=== PATIENT | female | born 1970 | race Caucasian/White ===

== ENCOUNTER 2017-09-02 06:25 | Day surgery (SDC) | payer OTHER ==
[2017-09-01 11:03] VITALS: BMI 24.3
[2017-09-02 07:13] VITALS: TEMP 97.9
[2017-09-02 07:34] LABS: BASO % 0.2 % (0-2.0); EOS % 1.4 % (0-4.5); HEMATOCRIT 41.3 % (32.4-45.2); HEMOGLOBIN 13.3 GM/dl (10.7-15.3); LYMPH % 31.4 % (8-40); MCH 29.5 pg (25.7-33.7); MCHC 32.1 g/dl (32.0-36.0); MEAN CELL VOLUME 91.9 fl (80-96); MEAN PLT VOLUME 8.5 fl (7.5-11.1); MONO % 4.8 % (3.8-10.2); NEUT % 62.2 % (42.8-82.8); PLATELET COUNT 384 K/MM3 (134-434); RDW 12.8 % (11.6-15.6); WHITE BLOOD COUNT 10.6 K/mm3 (4.0-10.8)
[2017-09-02 07:54] LABS: ALBUMIN 3.6 g/dl (3.5-5.0); ALK PHOS 39 U/L (32-92); ANION GAP 4 (8-16); BILIRUBIN,TOTAL 0.4 mg/dl (0.2-1.0); BLOOD UREA NITROGEN 13 mg/dl (7-18); CHLORIDE 107 mmol/L (98-107); CO2 26 mmol/L (22-28); CREATININE 0.9 mg/dl (0.6-1.3); GLUCOSE,RANDOM 94 mg/dl (74-106); POTASSIUM 3.9 mmol/L (3.5-5.1); SGOT/AST 11 U/L (10-42); SGPT/ALT 9 U/L (10-40); SODIUM 137 mmol/L (136-145); TOT PROT 5.7 g/dl (6.4-8.3)
[2017-09-02] MEDS ORDERED: KETAMINE HCL 500 MG/10 ML VIAL ONE (08:27)
[2017-09-02] MEDS ORDERED: PROMETHAZINE HCL 25 MG/1 ML VIAL IVPUSH PRN (08:39)
[2017-09-02] MEDS ORDERED: ONDANSETRON 4 MG/2 ML VIAL IVPUSH PRN (08:39)
[2017-09-02] MEDS ORDERED: ACETAMINOPHEN 325 MG TABLET (FP) PO PRN (08:39)
[2017-09-02] MEDS ORDERED: LACTATED RINGERS SOLUTION 1,000 ML IV SCH (08:45)
[2017-09-02 10:17] VITALS: BP 110/71; PULSE 69
--- NOTE | 2017-09-02 18:57 | EKG ---
Test Reason : Blood Pressure : / mmHG Vent. Rate : 059 BPM Atrial Rate : 059 BPM P-R Int : 160 ms QRS Dur : 080 ms QT Int : 438 ms P-R-T Axes : 047 006 038 degrees QTc Int : 433 ms SINUS BRADYCARDIA OTHERWISE NORMAL ECG NO PREVIOUS ECGS AVAILABLE Confirmed by JASMINE BARNARD MD ([id number]) on 09/02/2017 6:57:35 PM Referred By: Andrew Parikh Confirmed By:JASMINE BARNARD MD
== END 2017-09-02 10:00 | disposition home or self-care (01) ==
LOC: FECT 06:25 → SUATTDRO 06:25 → FECT 10:00
PROVIDERS: ATTEND Nurse Practitioner Family
PROC: GZB4ZZZ Other Electroconvulsive Therapy (ICD-10-PCS; principal; 2017-09-02 08:15)
DX: F33.2 Major depressive disorder, recurrent severe without psychotic features (principal)
CPT/HCPCS: 36415; 80053; 84703; 85025; 90870; 93005; 94760

== ENCOUNTER 2017-09-03 05:46 | Day surgery (SDC) | payer OTHER ==
[2017-09-01 12:52] VITALS: BMI 24.3
--- NOTE | 2017-09-02 07:52 | HP ---
CHIEF COMPLAINT: Major Depression PCP:Dr. Tyrell Boateng HISTORY OF PRESENT ILLNESS: This is a 47 year old female with primary history significant for anxiety and major depression who was admitted to [facility] in Apr 2017 and have received ECT's, now here for scheduled ECT. Pt denies RUBI, dizziness, chest pain, sob, palpitations, abdominal pain, N/V/D, fever, chills or urinary symptoms. ER course was notable for: (1) EKG- SB (2) Lab - reviewed Recent Travel:No PAST MEDICAL HISTORY: Anxiety, major depression PAST SURGICAL HISTORY: 2002 Social History: Smoking:No Alcohol:No Drugs: No Family History: Father - HTN Mother - Leukemia Allergies No Known Drug Allergies Allergy (Verified 09/02/17 06:54) HOME MEDICATIONS: Home Medications Medication Instructions Recorded [place] Carbonate [Eskalith -] 900 mg PO HS 09/02/17 Sertraline HCl [Zoloft -] 25 mg PO HS 09/02/17 Ziprasidone [Geodon] 80 mg PO HS 09/02/17 REVIEW OF SYSTEMS CONSTITUTIONAL: Absent: fever, chills, diaphoresis, generalized weakness, malaise, loss of appetite, weight change HEENT: Absent: rhinorrhea, nasal congestion, throat pain, throat swelling, difficulty swallowing, mouth swelling, ear pain, eye pain, visual changes CARDIOVASCULAR: Absent: chest pain, syncope, palpitations, irregular heart rate, lightheadedness , peripheral edema RESPIRATORY: Absent: cough, shortness of breath, dyspnea with exertion, orthopnea, wheezing, stridor, hemoptysis GASTROINTESTINAL: Absent: abdominal pain, abdominal distension, nausea, vomiting, diarrhea, constipation, melena, hematochezia GENITOURINARY: Absent: dysuria, frequency, urgency, hesitancy, hematuria, flank pain, genital pain MUSCULOSKELETAL: Absent: myalgia, arthralgia, joint swelling, back pain, neck pain SKIN: Absent: rash, itching, pallor HEMATOLOGIC/IMMUNOLOGIC: Absent: easy bleeding, easy bruising, lymphadenopathy, frequent infections ENDOCRINE: Absent: unexplained weight gain, unexplained weight loss, heat intolerance, cold intolerance NEUROLOGIC: Absent: headache, focal weakness or paresthesias, dizziness, unsteady gait, seizure, mental status changes, bladder or bowel incontinence PSYCHIATRIC: Absent: anxiety, depression, suicidal or homicidal ideation, hallucinations. PHYSICAL EXAMINATION GENERAL: Awake, alert, and fully oriented, in no acute distress. HEAD: Normal with no signs of trauma. EYES: Pupils equal, round and reactive to light, extraocular movements intact, sclera anicteric, conjunctiva clear. No lid lag. EARS, NOSE, THROAT: Ears normal, nares patent, oropharynx clear without exudates. Moist mucous membranes. NECK: Normal range of motion, supple without lymphadenopathy, JVD, or masses. LUNGS: Breath sounds equal, clear to auscultation bilaterally. No wheezes, and no crackles. No accessory muscle use. HEART: Regular rate and rhythm, normal S1 and S2 without murmur, rub or gallop. ABDOMEN: Soft, nontender, not distended, normoactive bowel sounds, no guarding, no rebound, no masses. No hepatomegaly or splenomegaly. MUSCULOSKELETAL: Normal range of motion at all joints. No bony deformities or tenderness. No CVA tenderness. UPPER EXTREMITIES: 2+ pulses, warm, well-perfused. No cyanosis. No clubbing. No peripheral edema. LOWER EXTREMITIES: 2+ pulses, warm, well-perfused. No calf tenderness. No peripheral edema. NEUROLOGICAL: Cranial nerves II-XII intact. Normal speech. Normal gait. PSYCHIATRIC: Cooperative. Good eye contact. Appropriate mood and affect. SKIN: Warm, dry, normal turgor, no rashes or lesions noted, normal capillary refill. ASSESSMENT/PLAN: This is a 47 year old female with primary history significant for anxiety and major depression, here for ECT. * Major depression - ECT today - will cotn on [place], Sertraline and Ziprasido -labs reviewed -pt is medically optimized for ECT. * F/E/N: regular diet Visit type - Emergency Visit Emergency Visit: Yes Care time: The patient presented to the Emergency Department on the above date and was hospitalized for further evaluation of their emergent condition. - New Patient This patient is new to me today: Yes Date on this admission: 09/02/17 - Critical Care Critical Care patient: No
[2017-09-03 06:27] VITALS: TEMP 98.3
[2017-09-03] MEDS ORDERED: ACETAMINOPHEN 325 MG TABLET (FP) PO PRN (07:37)
[2017-09-03] MEDS ORDERED: KETAMINE HCL 500 MG/10 ML VIAL ONE (07:44)
[2017-09-03 09:07] VITALS: BP 108/78; PULSE 79
== END 2017-09-03 09:10 | disposition home or self-care (01) ==
LOC: FECT 05:46
PROVIDERS: ATTEND Psychiatry & Neurology Psychiatry
PROC: GZB4ZZZ Other Electroconvulsive Therapy (ICD-10-PCS; principal; 2017-09-03 08:15)
DX: F33.2 Major depressive disorder, recurrent severe without psychotic features (principal)
CPT/HCPCS: 90870; 94760

== ENCOUNTER 2017-09-05 05:44 | Day surgery (SDC) | payer OTHER ==
[2017-09-02 11:10] VITALS: BMI 24.3
[2017-09-05] MEDS ORDERED: KETAMINE HCL 500 MG/10 ML VIAL ONE (08:20)
[2017-09-05 09:50] VITALS: PULSE 74; TEMP 97.6
[2017-09-05 10:12] VITALS: BP 128/73
== END 2017-09-05 10:05 | disposition home or self-care (01) ==
LOC: FECT 05:44
PROVIDERS: ATTEND Psychiatry & Neurology Psychiatry
PROC: GZB4ZZZ Other Electroconvulsive Therapy (ICD-10-PCS; principal; 2017-09-05 08:45)
DX: F33.2 Major depressive disorder, recurrent severe without psychotic features (principal)
CPT/HCPCS: 90870; 94760

== ENCOUNTER 2017-09-08 05:45 | Day surgery (SDC) | payer OTHER ==
[2017-09-02 11:29] VITALS: BMI 24.3
[2017-09-08] MEDS ORDERED: KETAMINE HCL 500 MG/10 ML VIAL ONE (06:57)
[2017-09-08 08:17] VITALS: TEMP 98.1
[2017-09-08 09:24] VITALS: BP 120/79; PULSE 76
== END 2017-09-08 09:30 | disposition home or self-care (01) ==
LOC: FECT 05:45
PROVIDERS: ATTEND Psychiatry & Neurology Psychiatry
PROC: GZB4ZZZ Other Electroconvulsive Therapy (ICD-10-PCS; principal; 2017-09-08 08:00)
DX: F33.2 Major depressive disorder, recurrent severe without psychotic features (principal)
CPT/HCPCS: 84703; 90870; 94760

== ENCOUNTER 2017-09-10 05:43 | Day surgery (SDC) | payer OTHER ==
[2017-09-04 10:29] VITALS: BMI 24.3
[2017-09-10] MEDS ORDERED: KETAMINE HCL 500 MG/10 ML VIAL ONE (07:45)
[2017-09-10] MEDS ORDERED: ACETAMINOPHEN 325 MG TABLET (FP) PO PRN (08:01)
[2017-09-10] MEDS ORDERED: ONDANSETRON 4 MG/2 ML VIAL IVPUSH PRN (08:01)
[2017-09-10] MEDS ORDERED: PROMETHAZINE HCL 25 MG/1 ML VIAL IVPUSH PRN (08:01)
[2017-09-10 09:07] VITALS: TEMP 98.4
[2017-09-10 09:28] VITALS: BP 122/80
[2017-09-10 09:31] VITALS: PULSE 80
== END 2017-09-10 09:31 | disposition home or self-care (01) ==
LOC: FECT 05:43
PROVIDERS: ATTEND Psychiatry & Neurology Psychiatry
PROC: GZB4ZZZ Other Electroconvulsive Therapy (ICD-10-PCS; principal; 2017-09-10 07:45)
DX: F33.2 Major depressive disorder, recurrent severe without psychotic features (principal)
CPT/HCPCS: 90870; 94760

== ENCOUNTER 2017-09-12 05:44 | Day surgery (SDC) | payer OTHER ==
[2017-09-04 10:50] VITALS: BMI 24.3
[2017-09-12] MEDS ORDERED: KETAMINE HCL 500 MG/10 ML VIAL ONE (08:28)
[2017-09-12 09:45] VITALS: TEMP 98.2
[2017-09-12 10:00] VITALS: BP 126/82; PULSE 76
== END 2017-09-12 10:09 | disposition home or self-care (01) ==
LOC: FECT 05:44
PROVIDERS: ATTEND Psychiatry & Neurology Psychiatry
PROC: GZB4ZZZ Other Electroconvulsive Therapy (ICD-10-PCS; principal; 2017-09-12 08:00)
DX: F33.2 Major depressive disorder, recurrent severe without psychotic features (principal)
CPT/HCPCS: 84703; 90870; 94760

== ENCOUNTER 2017-09-15 05:51 | Day surgery (SDC) | payer OTHER ==
[2017-09-12 13:55] VITALS: BMI 24.3
[2017-09-15 06:20] VITALS: TEMP 98.2
[2017-09-15] MEDS ORDERED: KETAMINE HCL 500 MG/10 ML VIAL ONE (06:55)
[2017-09-15] MEDS ORDERED: oxyCODONE HCL 5 MG TABLET PO PRN (08:05)
[2017-09-15] MEDS ORDERED: ONDANSETRON 4 MG/2 ML VIAL IVPUSH PRN (08:05)
[2017-09-15] MEDS ORDERED: LACTATED RINGERS SOLUTION 1,000 ML IV SCH (08:15)
[2017-09-15 09:14] VITALS: BP 120/74; PULSE 74
== END 2017-09-15 08:40 | disposition home or self-care (01) ==
LOC: FECT 05:51
PROVIDERS: ATTEND Psychiatry & Neurology Psychiatry
PROC: GZB4ZZZ Other Electroconvulsive Therapy (ICD-10-PCS; principal; 2017-09-15 08:30)
DX: F33.2 Major depressive disorder, recurrent severe without psychotic features (principal)
CPT/HCPCS: 90870; 94760

== ENCOUNTER 2017-09-17 05:46 | Day surgery (SDC) | payer OTHER ==
[2017-09-15 12:36] VITALS: BMI 24.3
[2017-09-17] MEDS ORDERED: KETAMINE HCL 500 MG/10 ML VIAL ONE (07:08)
[2017-09-17] MEDS ORDERED: oxyCODONE HCL 5 MG TABLET PO PRN (07:21)
[2017-09-17] MEDS ORDERED: ONDANSETRON 4 MG/2 ML VIAL IVPUSH PRN (07:21)
[2017-09-17 08:28] VITALS: BP 110/80; PULSE 90; TEMP 98.8
== END 2017-09-17 08:55 | disposition home or self-care (01) ==
LOC: FECT 05:46
PROVIDERS: ATTEND Psychiatry & Neurology Psychiatry
PROC: GZB4ZZZ Other Electroconvulsive Therapy (ICD-10-PCS; principal; 2017-09-17 08:00)
DX: F33.2 Major depressive disorder, recurrent severe without psychotic features (principal)
CPT/HCPCS: 84703; 90870; 94760

== ENCOUNTER → 2017-09-19 | Day surgery (SDC) | payer OTHER ==
[2017-09-17 13:37] VITALS: BMI 24.3
[~2017-09-19] MED LIST: KETAMINE HCL 500 MG/10 ML VIAL ONE
[2017-09-19 07:59] VITALS: TEMP 98.2
[2017-09-19 09:50] VITALS: BP 112/77; PULSE 72
== END | disposition home or self-care (01) ==
LOC: FECT 05:51
PROVIDERS: ATTEND Psychiatry & Neurology Psychiatry
PROC: GZB4ZZZ Other Electroconvulsive Therapy (ICD-10-PCS; principal; 2017-09-19 08:45)
DX: F33.2 Major depressive disorder, recurrent severe without psychotic features (principal)
CPT/HCPCS: 90870; 94760

== ENCOUNTER 2017-09-24 05:42 | Day surgery (SDC) | payer OTHER ==
[2017-09-16 11:06] VITALS: BMI 24.3
[2017-09-24] MEDS ORDERED: KETAMINE HCL 500 MG/10 ML VIAL ONE (07:16)
[2017-09-24 08:19] VITALS: TEMP 98.2
[2017-09-24 08:46] VITALS: BP 126/82; PULSE 72
== END 2017-09-24 08:48 | disposition home or self-care (01) ==
LOC: FECT 05:42
PROVIDERS: ATTEND Psychiatry & Neurology Psychiatry
PROC: GZB4ZZZ Other Electroconvulsive Therapy (ICD-10-PCS; principal; 2017-09-24 07:15)
DX: F33.2 Major depressive disorder, recurrent severe without psychotic features (principal)
CPT/HCPCS: 84703; 90870; 94760

== ENCOUNTER 2017-09-29 06:34 | Day surgery (SDC) | payer OTHER ==
[2017-09-16 11:09] VITALS: BMI 24.3
[2017-09-29] MEDS ORDERED: KETAMINE HCL 500 MG/10 ML VIAL ONE (09:06)
[2017-09-29] MEDS ORDERED: LACTATED RINGERS SOLUTION 1,000 ML IV SCH (10:00)
[2017-09-29] MEDS ORDERED: ONDANSETRON 4 MG/2 ML VIAL IVPUSH PRN (10:00)
[2017-09-29] MEDS ORDERED: oxyCODONE HCL 5 MG TABLET PO PRN (10:00)
[2017-09-29 11:15] VITALS: TEMP 98.1
[2017-09-29 11:16] VITALS: BP 118/65; PULSE 81
== END 2017-09-29 11:00 | disposition home or self-care (01) ==
LOC: FECT 06:34
PROVIDERS: ATTEND Psychiatry & Neurology Psychiatry
PROC: GZB4ZZZ Other Electroconvulsive Therapy (ICD-10-PCS; principal; 2017-09-29 09:00)
DX: F33.2 Major depressive disorder, recurrent severe without psychotic features (principal)

== ENCOUNTER 2017-10-01 05:46 | Day surgery (SDC) | payer OTHER ==
[2017-09-30 08:58] VITALS: BMI 24.3
--- NOTE | 2017-10-01 07:03 | HP ---
Admitting History and Physical - Admission History of Present Illness: patient is a 47 y/o female with a past medical history of anxiety and depression. Patient presents for ect, her last ect was 09/26/17. She reports feeling well, does report a slow impovement in depressive symptoms since starting ect. she denies any recent illnesses or hospitalizations. Patient denies any suicidal or homicidal ideation, visual or auditory hallucinations. History Source: Patient Limitations to Obtaining History: No Limitations - Past Medical History ...LMP: 06/25/17 - Smoking History Smoking history: Former smoker Have you smoked in the past 12 months: No If you are a former smoker, when did you quit?: 1990S - Alcohol/Substance Use Hx Alcohol Use: No History of Substance Use: reports: None - Social History Usual Living Arrangement: Yes: With Spouse ADL: Independent History of Recent Travel: No Home Medications - Allergies Allergies/Adverse Reactions: Allergies Allergy/AdvReac Type Severity Reaction Status Date / Time No Known Drug Allergies Allergy Verified 09/05/17 07:29 - Home Medications Home Medications: Ambulatory Orders [place] Carbonate [Eskalith -] 900 mg PO HS 09/02/17 Venlafaxine HCl ER [Effexor Xr -] 75 mg PO DAILY 09/29/17 Family Disease History - Family Disease History Family History: Denies Review of Systems - Review of Systems Constitutional: reports: No Symptoms Eyes: reports: No Symptoms HENT: reports: No Symptoms Neck: reports: No Symptoms Cardiovascular: reports: No Symptoms Respiratory: reports: No Symptoms Gastrointestinal: reports: No Symptoms Genitourinary: reports: No Symptoms Musculoskeletal: reports: No Symptoms Integumentary: reports: No Symptoms Neurological: reports: No Symptoms Endocrine: reports: No Symptoms Hematology/Lymphatic: reports: No Symptoms Psychiatric: reports: No Symptoms Physical Examination Constitutional: Yes: Well Nourished, No Distress, Calm Eyes: Yes: WNL, Conjunctiva Clear, EOM Intact HENT: Yes: WNL, Atraumatic, Normocephalic Neck: Yes: WNL, Supple, Trachea Midline Cardiovascular: Yes: WNL, Regular Rate and Rhythm, S1, S2 Respiratory: Yes: WNL, Regular, CTA Bilaterally Gastrointestinal: Yes: WNL, Normal Bowel Sounds, Soft ...Rectal Exam: Yes: Deferred Renal/: Yes: WNL Breast(s): Yes: WNL Musculoskeletal: Yes: WNL Extremities: Yes: WNL Edema: No Edema: RLE: Trace Peripheral Pulses WNL: Yes Peripheral Pulses: Left Radial: 4+, Right Radial: 4+, Left Doralis Pedis: 3+, Right Dorsalis Pedis: 3+, Left Femoral: 3+, Right Femoral: 3+ Integumentary: Yes: WNL Neurological: Yes: WNL, Alert, Oriented ...Motor Strength: WNL Psychiatric: Yes: WNL, Alert, Oriented Labs: reviewed 09/02/17 Imaging - Results EKG: Image Reviewed, Other (sinus bradycardia) Assessment/Plan patient is a 47y/o female that presents for ect, labs and ekg reviewed patient is medically optimized for procedure informed consent, risks/benefits to be obtained by Dr Parikh
[2017-10-01 08:50] VITALS: TEMP 98.8
[2017-10-01 09:29] VITALS: BP 112/72
[2017-10-01 09:34] VITALS: PULSE 82
== END 2017-10-01 09:34 | disposition home or self-care (01) ==
LOC: FECT 05:46
PROVIDERS: ATTEND Psychiatry & Neurology Psychiatry
PROC: GZB4ZZZ Other Electroconvulsive Therapy (ICD-10-PCS; principal; 2017-10-01 08:00)
DX: F33.2 Major depressive disorder, recurrent severe without psychotic features (principal)

== ENCOUNTER 2017-10-06 05:39 | Day surgery (SDC) | payer OTHER ==
[2017-09-30 10:33] VITALS: BMI 24.3
[2017-10-06 06:44] VITALS: TEMP 98.3
[2017-10-06] MEDS ORDERED: KETAMINE HCL 500 MG/10 ML VIAL ONE (07:50)
[2017-10-06 09:07] VITALS: PULSE 85
[2017-10-06 09:32] VITALS: BP 113/83
== END 2017-10-06 09:30 | disposition home or self-care (01) ==
LOC: FECT 05:39
PROVIDERS: ATTEND Psychiatry & Neurology Psychiatry
PROC: GZB4ZZZ Other Electroconvulsive Therapy (ICD-10-PCS; principal; 2017-10-06 07:00)
DX: F33.2 Major depressive disorder, recurrent severe without psychotic features (principal)
CPT/HCPCS: 90870; 94760

== ENCOUNTER 2017-10-08 05:42 | Day surgery (SDC) | payer OTHER ==
[2017-10-08] MEDS ORDERED: KETAMINE HCL 500 MG/10 ML VIAL ONE (07:07)
[2017-10-08] MEDS ORDERED: ONDANSETRON 4 MG/2 ML VIAL IVPUSH PRN (07:39)
[2017-10-08] MEDS ORDERED: LACTATED RINGERS SOLUTION 1,000 ML IV SCH (07:45)
[2017-10-08 08:43] VITALS: BMI 23.2
[2017-10-08 08:47] VITALS: TEMP 98.6
[2017-10-08 09:02] VITALS: BP 110/77; PULSE 82
== END 2017-10-08 09:08 | disposition home or self-care (01) ==
LOC: FECT 05:42
PROVIDERS: ATTEND Psychiatry & Neurology Psychiatry
PROC: GZB4ZZZ Other Electroconvulsive Therapy (ICD-10-PCS; principal; 2017-10-08 07:00)
DX: F33.2 Major depressive disorder, recurrent severe without psychotic features (principal)
CPT/HCPCS: 84703; 90870; 94760

== ENCOUNTER 2017-10-31 05:48 | Day surgery (SDC) | payer OTHER ==
[2017-10-31 06:49] VITALS: BMI 23.1
--- NOTE | 2017-10-31 07:12 | HP ---
Admitting History and Physical - Admission History of Present Illness: Patient is a 47 y/o female with a past medical history of anxiety and depression. Patient presents for ect, her last ect was 10/08/17. Patient reports a significant improvement in depressive symptoms since starting ect. 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 Patient denies any changes in medications, patient reports compliance with prescribed medications. Patient denies any suicidal or homicidal ideation, visual or auditory hallucinations. History Source: Patient Limitations to Obtaining History: No Limitations - Past Medical History ...LMP: 09/25/17 - Smoking History Smoking history: Former smoker Have you smoked in the past 12 months: No If you are a former smoker, when did you quit?: 1990S - Alcohol/Substance Use Hx Alcohol Use: No History of Substance Use: reports: None - Social History Usual Living Arrangement: Yes: With Spouse ADL: Independent History of Recent Travel: No Home Medications - Allergies Allergies/Adverse Reactions: Allergies Allergy/AdvReac Type Severity Reaction Status Date / Time No Known Drug Allergies Allergy Verified 09/05/17 07:29 - Home Medications Home Medications: Ambulatory Orders [place] Carbonate [Eskalith -] 900 mg PO HS 09/02/17 Venlafaxine HCl ER [Effexor Xr -] 75 mg PO HS 09/29/17 Review of Systems - Review of Systems Constitutional: reports: No Symptoms Eyes: reports: No Symptoms HENT: reports: No Symptoms Neck: reports: No Symptoms Cardiovascular: reports: No Symptoms Respiratory: reports: No Symptoms Gastrointestinal: reports: No Symptoms Genitourinary: reports: No Symptoms Musculoskeletal: reports: No Symptoms Integumentary: reports: No Symptoms Neurological: reports: No Symptoms Endocrine: reports: No Symptoms Hematology/Lymphatic: reports: No Symptoms Psychiatric: reports: No Symptoms Physical Examination Vital Signs: Vital Signs Temperature 98.2 F 10/31/17 06:38 Pulse Rate 80 10/31/17 06:38 Respiratory Rate 18 10/31/17 06:38 Blood Pressure 132/89 10/31/17 06:38 O2 Sat by Pulse Oximetry (%) 96 10/31/17 06:38 Constitutional: Yes: Well Nourished, No Distress, Calm Eyes: Yes: WNL, Conjunctiva Clear, EOM Intact HENT: Yes: WNL, Atraumatic, Normocephalic Neck: Yes: WNL, Supple, Trachea Midline Cardiovascular: Yes: WNL, Regular Rate and Rhythm, S1, S2 Respiratory: Yes: WNL, Regular, CTA Bilaterally Gastrointestinal: Yes: WNL, Normal Bowel Sounds, Soft ...Rectal Exam: Yes: Deferred Renal/: Yes: WNL Musculoskeletal: Yes: WNL Extremities: Yes: WNL Edema: No Peripheral Pulses WNL: Yes Peripheral Pulses: Left Radial: 4+, Right Radial: 4+, Left Doralis Pedis: 3+, Right Dorsalis Pedis: 3+, Left Femoral: 3+, Right Femoral: 3+ Integumentary: Yes: WNL Neurological: Yes: WNL, Alert, Oriented ...Motor Strength: WNL Psychiatric: Yes: WNL, Alert, Oriented Labs: reviewed 09/02/17 Imaging - Results EKG: Image Reviewed, Other (sinus bradycardia) Assessment/Plan patient is a 47y/o female that presents for ect, labs and ekg reviewed, patient is medically optimized for procedure informed consent, risks/benefits to be obtained by Dr Parikh
[2017-10-31] MEDS ORDERED: oxyCODONE HCL 5 MG TABLET PO PRN (07:51)
[2017-10-31] MEDS ORDERED: ONDANSETRON 4 MG/2 ML VIAL IVPUSH PRN (07:51)
[2017-10-31 09:40] VITALS: TEMP 98.8
[2017-10-31 09:50] VITALS: BP 133/88; PULSE 89
== END 2017-10-31 09:45 | disposition home or self-care (01) ==
LOC: FECT 05:48
PROVIDERS: ATTEND Psychiatry & Neurology Psychiatry
PROC: GZB4ZZZ Other Electroconvulsive Therapy (ICD-10-PCS; principal; 2017-10-31 08:00)
DX: F33.2 Major depressive disorder, recurrent severe without psychotic features (principal)
CPT/HCPCS: 84703; 90870; 94760

== ENCOUNTER 2017-11-14 05:46 | Day surgery (SDC) | payer OTHER ==
[2017-11-14 06:49] VITALS: BMI 22.9
[2017-11-14] MEDS ORDERED: oxyCODONE HCL 5 MG TABLET PO PRN (07:44)
[2017-11-14] MEDS ORDERED: ONDANSETRON 4 MG/2 ML VIAL IVPUSH PRN (07:44)
[2017-11-14 09:10] VITALS: TEMP 97.9
[2017-11-14 09:54] VITALS: BP 126/86; PULSE 82
== END 2017-11-14 10:00 | disposition home or self-care (01) ==
LOC: FECT 05:46
PROVIDERS: ATTEND Psychiatry & Neurology Psychiatry
PROC: GZB4ZZZ Other Electroconvulsive Therapy (ICD-10-PCS; principal; 2017-11-14 07:15)
DX: F33.2 Major depressive disorder, recurrent severe without psychotic features (principal)
CPT/HCPCS: 84703; 90870; 94760

== ENCOUNTER 2017-11-28 05:46 | Day surgery (SDC) | payer OTHER ==
[2017-11-24 13:30] VITALS: BMI 22.9
[2017-11-28 09:53] VITALS: TEMP 98.2
[2017-11-28 10:35] VITALS: BP 125/86; PULSE 92
== END 2017-11-28 10:15 | disposition home or self-care (01) ==
LOC: FECT 05:46
PROVIDERS: ATTEND Psychiatry & Neurology Psychiatry
PROC: GZB4ZZZ Other Electroconvulsive Therapy (ICD-10-PCS; principal; 2017-11-28)
DX: F33.2 Major depressive disorder, recurrent severe without psychotic features (principal)
CPT/HCPCS: 84703; 90870; 94760

== ENCOUNTER 2017-12-12 07:35 | Day surgery (SDC) | payer OTHER ==
[2017-12-12 08:13] VITALS: BMI 22.8
--- NOTE | 2017-12-12 08:26 | HP ---
Admitting History and Physical - Admission History of Present Illness: Patient is a 47 y/o female with a past medical history of depression and anxiety. patient presents for ect, her last ect as 11/28/17. Patient does report an improvement in depressive symptoms since starting ect. However, she does report ongoing feelings of anxiety. She denies any suicidal or homicidal ideation, visual or auditory hallucinations. Patient denies any recent illnesses or hospitalizations. History Source: Patient Limitations to Obtaining History: No Limitations - Past Medical History ...LMP: 11/11/17 - Smoking History Smoking history: Former smoker Have you smoked in the past 12 months: No If you are a former smoker, when did you quit?: 1990S - Alcohol/Substance Use Hx Alcohol Use: No History of Substance Use: reports: None - Social History Usual Living Arrangement: Yes: With Spouse ADL: Independent History of Recent Travel: No Home Medications - Allergies Allergies/Adverse Reactions: Allergies Allergy/AdvReac Type Severity Reaction Status Date / Time No Known Drug Allergies Allergy Verified 09/05/17 07:29 - Home Medications Home Medications: Ambulatory Orders Venlafaxine HCl ER [Effexor Xr -] 75 mg PO HS 12/12/17 Family Disease History - Family Disease History Family History: Denies Review of Systems - Review of Systems Constitutional: reports: No Symptoms Eyes: reports: No Symptoms HENT: reports: No Symptoms Neck: reports: No Symptoms Cardiovascular: reports: No Symptoms Respiratory: reports: No Symptoms Gastrointestinal: reports: No Symptoms Genitourinary: reports: No Symptoms Musculoskeletal: reports: No Symptoms, Other Integumentary: reports: No Symptoms Neurological: reports: No Symptoms Endocrine: reports: No Symptoms Hematology/Lymphatic: reports: No Symptoms Psychiatric: reports: Anxiety Physical Examination Vital Signs: Vital Signs Temperature 98.3 F 12/12/17 08:11 Pulse Rate 88 12/12/17 08:11 Respiratory Rate 18 12/12/17 08:11 Blood Pressure 125/74 12/12/17 08:11 O2 Sat by Pulse Oximetry (%) 97 12/12/17 08:11 Constitutional: Yes: Well Nourished, No Distress, Anxious Eyes: Yes: WNL, Conjunctiva Clear, EOM Intact HENT: Yes: WNL, Atraumatic, Normocephalic Neck: Yes: WNL, Supple, Trachea Midline Cardiovascular: Yes: WNL, Regular Rate and Rhythm, S1, S2 Respiratory: Yes: WNL, Regular, CTA Bilaterally Gastrointestinal: Yes: WNL, Normal Bowel Sounds, Soft ...Rectal Exam: Yes: Deferred Renal/: Yes: WNL Breast(s): Yes: WNL Musculoskeletal: Yes: WNL Extremities: Yes: WNL Edema: No Peripheral Pulses WNL: Yes Peripheral Pulses: Left Radial: 4+, Right Radial: 4+, Left Doralis Pedis: 3+, Right Dorsalis Pedis: 3+, Left Femoral: 3+, Right Femoral: 3+ Integumentary: Yes: WNL Neurological: Yes: WNL, Alert, Oriented ...Motor Strength: WNL Psychiatric: Yes: WNL, Alert, Oriented (reviewed 09/02/17) Imaging - Results EKG: Image Reviewed, Other (sinus bradycardia) Assessment/Plan patient is a 47 y/o female that presents for ect, labs and ekg reviewed, patient is medically optimized for procedure informed consent, risks/benefits to be obtained by Dr Parikh
[2017-12-12 10:01] VITALS: TEMP 98.1
[2017-12-12 10:24] VITALS: BP 136/73; PULSE 88
== END 2017-12-12 10:20 | disposition home or self-care (01) ==
LOC: FECT 07:35
PROVIDERS: ATTEND Psychiatry & Neurology Psychiatry
PROC: GZB4ZZZ Other Electroconvulsive Therapy (ICD-10-PCS; principal; 2017-12-12 07:30)
DX: F33.2 Major depressive disorder, recurrent severe without psychotic features (principal)
CPT/HCPCS: 84703; 90870; 94760

== ENCOUNTER 2017-12-26 05:44 | Day surgery (SDC) | payer OTHER ==
[2017-12-26 07:59] VITALS: TEMP 98; BMI 22.6
[2017-12-26 10:15] VITALS: BP 138/88; PULSE 94
== END 2017-12-26 10:05 | disposition home or self-care (01) ==
LOC: FECT 05:44
PROVIDERS: ATTEND Psychiatry & Neurology Psychiatry
PROC: GZB4ZZZ Other Electroconvulsive Therapy (ICD-10-PCS; principal; 2017-12-26 07:30)
DX: F33.2 Major depressive disorder, recurrent severe without psychotic features (principal)
CPT/HCPCS: 84703; 90870; 94760

== ENCOUNTER 2018-01-09 05:44 | Day surgery (SDC) | payer OTHER ==
[2018-01-09 06:48] VITALS: BMI 23.2
[2018-01-09] MEDS ORDERED: oxyCODONE HCL 5 MG TABLET PO PRN (07:57)
[2018-01-09] MEDS ORDERED: ONDANSETRON 4 MG/2 ML VIAL IVPUSH PRN (07:57)
[2018-01-09 09:04] VITALS: TEMP 99
[2018-01-09 09:34] VITALS: BP 140/79; PULSE 92
== END 2018-01-09 09:25 | disposition home or self-care (01) ==
LOC: FECT 05:44
PROVIDERS: ATTEND Psychiatry & Neurology Psychiatry
PROC: GZB4ZZZ Other Electroconvulsive Therapy (ICD-10-PCS; principal; 2018-01-09 07:00)
DX: F33.2 Major depressive disorder, recurrent severe without psychotic features (principal)
CPT/HCPCS: 84703; 90870; 94760

== ENCOUNTER 2018-02-19 05:45 | Day surgery (SDC) | payer OTHER ==
[2018-02-16 16:44] VITALS: BMI 23.2
[2018-02-19] MEDS ORDERED: ONDANSETRON 4 MG/2 ML VIAL IVPUSH PRN (07:00)
--- NOTE | 2018-02-19 07:12 | HP ---
Admitting History and Physical - Admission History of Present Illness: patient is a 47 y/o female with a past medical history of depression and anxiety. Patient has been undergoing ect since August 2017, her last ect was . Patient reports feeling well. she reports vacationing to [facility] for one month and does report some feelings of depression. She reports compliance with prescribed medications. Patient denies any recent illnesses or hospitalizations. patient denies any suicidal or homicidal ideation, visual or auditory hallucinations. History Source: Patient Limitations to Obtaining History: No Limitations - Past Medical History ...LMP: 11/11/17 - Smoking History Smoking history: Former smoker Have you smoked in the past 12 months: No If you are a former smoker, when did you quit?: 1990S - Alcohol/Substance Use Hx Alcohol Use: No History of Substance Use: reports: None - Social History Usual Living Arrangement: Yes: With Spouse ADL: Independent History of Recent Travel: No Home Medications - Allergies Allergies/Adverse Reactions: Allergies Allergy/AdvReac Type Severity Reaction Status Date / Time No Known Drug Allergies Allergy Verified 02/16/18 16:42 - Home Medications Home Medications: Ambulatory Orders Venlafaxine HCl ER [Effexor Xr -] 75 mg PO HS 12/12/17 Quetiapine Fumarate [Seroquel -] 200 mg PO HS 12/26/17 Aripiprazole [Abilify -] 2 mg PO DAILY 02/19/18 Family Disease History - Family Disease History Family History: Denies Review of Systems - Review of Systems Constitutional: reports: No Symptoms Eyes: reports: No Symptoms HENT: reports: No Symptoms Neck: reports: No Symptoms Cardiovascular: reports: No Symptoms Respiratory: reports: No Symptoms Gastrointestinal: reports: No Symptoms Genitourinary: reports: No Symptoms Musculoskeletal: reports: No Symptoms Integumentary: reports: No Symptoms Neurological: reports: No Symptoms Endocrine: reports: No Symptoms Hematology/Lymphatic: reports: No Symptoms Psychiatric: reports: Depression Physical Examination Constitutional: Yes: Well Nourished, No Distress, Calm Eyes: Yes: WNL, Conjunctiva Clear, EOM Intact HENT: Yes: WNL, Atraumatic, Normocephalic Neck: Yes: WNL, Supple, Trachea Midline Cardiovascular: Yes: WNL, Regular Rate and Rhythm, S1, S2 Respiratory: Yes: WNL, Regular, CTA Bilaterally Gastrointestinal: Yes: WNL, Normal Bowel Sounds, Soft ...Rectal Exam: Yes: Deferred Renal/: Yes: WNL Musculoskeletal: Yes: WNL Extremities: Yes: WNL Edema: No Peripheral Pulses WNL: Yes Peripheral Pulses: Left Radial: 4+, Right Radial: 4+, Left Doralis Pedis: 3+, Right Dorsalis Pedis: 3+, Left Femoral: 3+, Right Femoral: 3+ Integumentary: Yes: WNL Neurological: Yes: WNL, Alert, Oriented ...Motor Strength: WNL Psychiatric: Yes: WNL, Alert, Oriented Labs: reviewed 09/02/17 Imaging - Results EKG: Other (sinus bradycardia) Assessment/Plan Patient is a 47 y/o female, that presents for ect, labs and ekg reviewed patient is medically optimized for procedure informed consent, risks/benefits to be obtained by Dr Parikh
[2018-02-19 09:33] VITALS: TEMP 97.9
[2018-02-19 09:48] VITALS: BP 139/88; PULSE 89
== END 2018-02-19 09:40 | disposition home or self-care (01) ==
LOC: FECT 05:45
PROVIDERS: ATTEND Psychiatry & Neurology Psychiatry
PROC: GZB4ZZZ Other Electroconvulsive Therapy (ICD-10-PCS; principal; 2018-02-19 07:15)
DX: F33.2 Major depressive disorder, recurrent severe without psychotic features (principal)
CPT/HCPCS: 84703; 90870; 94760

== ENCOUNTER 2018-03-31 05:46 | Day surgery (SDC) | payer OTHER ==
[2018-03-19 11:07] VITALS: BMI 23.2
--- NOTE | 2018-03-31 06:57 | HP ---
Admitting History and Physical - Admission History of Present Illness: Patient is a 48 year old female with a past medical history of depression and anxiety. Patient has been undergoing ECT since August 2017, her last ect was on 02/19/2018. Patient reports feeling well. and verbalizes feelings of depression. States ECTs are helping her symptoms. She reports compliance with prescribed medications and will be starting Lamictal as a new medication tomorrow. Patient denies any recent illnesses or hospitalizations. Patient denies any suicidal or homicidal ideation, visual or auditory hallucinations. She denies any shortness of breath, chest pain or general malaise. Overall feels well. History Source: Patient Limitations to Obtaining History: No Limitations - Past Medical History ...LMP: 02/17/18 - Smoking History Smoking history: Former smoker Have you smoked in the past 12 months: No If you are a former smoker, when did you quit?: 1990S - Alcohol/Substance Use Hx Alcohol Use: No History of Substance Use: reports: None - Social History ADL: Independent History of Recent Travel: No Home Medications - Allergies Allergies/Adverse Reactions: Allergies Allergy/AdvReac Type Severity Reaction Status Date / Time No Known Drug Allergies Allergy Verified 03/19/18 10:58 - Home Medications Home Medications: Ambulatory Orders Venlafaxine HCl ER [Effexor Xr -] 75 mg PO DAILY 12/12/17 Quetiapine Fumarate [Seroquel -] 100 mg PO HS 12/26/17 Aripiprazole [Abilify -] 2 mg PO DAILY 02/19/18 Review of Systems - Review of Systems Constitutional: reports: No Symptoms Eyes: reports: No Symptoms HENT: reports: No Symptoms Neck: reports: No Symptoms Cardiovascular: reports: No Symptoms Respiratory: reports: No Symptoms Gastrointestinal: reports: No Symptoms Genitourinary: reports: No Symptoms Breasts: reports: No Symptoms Reported Musculoskeletal: reports: No Symptoms Integumentary: reports: No Symptoms Neurological: reports: No Symptoms, Parasthesia Endocrine: reports: No Symptoms Hematology/Lymphatic: reports: No Symptoms Psychiatric: reports: No Symptoms Physical Examination Constitutional: Yes: Well Nourished Eyes: Yes: WNL HENT: Yes: WNL Neck: Yes: WNL Cardiovascular: Yes: WNL Respiratory: Yes: WNL Gastrointestinal: Yes: WNL ...Rectal Exam: Yes: WNL Renal/: Yes: WNL Breast(s): Yes: Other Imaging - Results EKG: Image Reviewed Assessment/Plan Patient is here for a scheduled ECT. Her labs and EKG has been reviewed. No changes on her EKG from previous. Patient is medically cleared for ECT pending a negative test. informed consent, risks/benefits to be obtained by Dr Parikh
[2018-03-31] MEDS ORDERED: ONDANSETRON 4 MG/2 ML VIAL IVPUSH PRN (09:40)
[2018-03-31] MEDS ORDERED: LACTATED RINGERS SOLUTION 1,000 ML IV SCH (09:45)
[2018-03-31 10:38] VITALS: TEMP 97.8
[2018-03-31 10:43] VITALS: PULSE 86
[2018-03-31] MEDS ORDERED: ONDANSETRON *ODT* 4 MG TABLET SL ONE (11:33)
[2018-03-31 12:44] VITALS: BP 148/86
== END 2018-03-31 12:10 | disposition home or self-care (01) ==
LOC: FECT 05:46
PROVIDERS: ATTEND Psychiatry & Neurology Psychiatry
PROC: GZB4ZZZ Other Electroconvulsive Therapy (ICD-10-PCS; principal; 2018-03-31 07:00)
DX: F33.2 Major depressive disorder, recurrent severe without psychotic features (principal)
CPT/HCPCS: 84703; 90870; 94760; Q0162

== ENCOUNTER 2018-04-14 05:48 | Day surgery (SDC) | payer OTHER ==
[2018-04-01 10:41] VITALS: BMI 23.2
[2018-04-14 09:41] VITALS: TEMP 98.4
[2018-04-14 10:15] VITALS: BP 131/81; PULSE 87
== END 2018-04-14 10:10 | disposition home or self-care (01) ==
LOC: FECT 05:48
PROVIDERS: ATTEND Psychiatry & Neurology Psychiatry
PROC: GZB4ZZZ Other Electroconvulsive Therapy (ICD-10-PCS; principal; 2018-04-14 08:45)
DX: F33.2 Major depressive disorder, recurrent severe without psychotic features (principal)
CPT/HCPCS: 84703; 90870; 94760

== ENCOUNTER 2018-04-30 05:51 | Day surgery (SDC) | payer OTHER ==
[2018-04-30 06:25] VITALS: BMI 24.1
[2018-04-30] MEDS ORDERED: KETAMINE HCL 500 MG/10 ML VIAL ONE (06:51)
[2018-04-30] MEDS ORDERED: PROMETHAZINE HCL 25 MG/1 ML VIAL ONE (06:51)
[2018-04-30 08:44] VITALS: TEMP 98.6
[2018-04-30 09:08] VITALS: BP 130/74; PULSE 79
== END 2018-04-30 09:10 | disposition home or self-care (01) ==
LOC: FECT 05:51
PROVIDERS: ATTEND Psychiatry & Neurology Psychiatry
PROC: GZB4ZZZ Other Electroconvulsive Therapy (ICD-10-PCS; principal; 2018-04-30 07:15)
DX: F33.2 Major depressive disorder, recurrent severe without psychotic features (principal)
CPT/HCPCS: 84703; 90870; 94760

== ENCOUNTER 2018-05-14 05:41 | Day surgery (SDC) | payer OTHER ==
[2018-05-14 07:53] VITALS: BMI 24.6
--- NOTE | 2018-05-14 07:58 | HP ---
Admitting History and Physical - Admission History of Present Illness: Patient is a 57 y/o female with a past medical history of depression and anxiety , she presents for ect. Patient has been undergoing ect since 08/2017, her last ect was 04/30/18. Patient reports a significant improvement in depressive symptoms since starting ect. Patient does report her lamictal was increased to 50mg daily. She denies any recent illnesses or hospitalizations. Patient denies any suicidal or homicidal ideation, visual or auditory hallucinations. 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 History of Recent Travel: No Home Medications - Allergies Allergies/Adverse Reactions: Allergies Allergy/AdvReac Type Severity Reaction Status Date / Time No Known Drug Allergies Allergy Verified 03/19/18 10:58 - Home Medications Home Medications: Ambulatory Orders Venlafaxine HCl ER [Effexor Xr -] 75 mg PO DAILY 12/12/17 Aripiprazole [Abilify -] 2 mg PO DAILY 02/19/18 Lamotrigine [Lamictal (Blue)] 25 mg PO DAILY 04/14/18 Lamotrigine [Lamictal (Blue)] 50 mg PO HS 04/30/18 Family Disease History - Family Disease History Family History: Denies Review of Systems - Review of Systems Constitutional: reports: No Symptoms Eyes: reports: No Symptoms HENT: reports: No Symptoms Neck: reports: No Symptoms Cardiovascular: reports: No Symptoms Respiratory: reports: No Symptoms Gastrointestinal: reports: No Symptoms Genitourinary: reports: No Symptoms Breasts: reports: No Symptoms Reported Musculoskeletal: reports: No Symptoms Integumentary: reports: No Symptoms Neurological: reports: No Symptoms Endocrine: reports: No Symptoms Hematology/Lymphatic: reports: No Symptoms Psychiatric: reports: No Symptoms Physical Examination Vital Signs: Vital Signs Temperature 98.4 F 05/14/18 07:49 Pulse Rate 68 05/14/18 07:49 Respiratory Rate 18 05/14/18 07:49 Blood Pressure 113/76 05/14/18 07:49 O2 Sat by Pulse Oximetry (%) 96 05/14/18 07:49 Constitutional: Yes: Well Nourished, No Distress, Calm Eyes: Yes: WNL, Conjunctiva Clear, EOM Intact HENT: Yes: WNL, Atraumatic, Normocephalic Neck: Yes: WNL, Supple, Trachea Midline Cardiovascular: Yes: WNL, Regular Rate and Rhythm, S1, S2 Respiratory: Yes: WNL, Regular, CTA Bilaterally Gastrointestinal: Yes: WNL, Normal Bowel Sounds, Soft ...Rectal Exam: Yes: Deferred Renal/: Yes: WNL Breast(s): Yes: WNL Musculoskeletal: Yes: WNL Extremities: Yes: WNL Edema: No Peripheral Pulses WNL: Yes Peripheral Pulses: Left Radial: 4+, Right Radial: 4+, Left Doralis Pedis: 3+, Right Dorsalis Pedis: 3+, Left Femoral: 3+, Right Femoral: 3+ Integumentary: Yes: WNL Neurological: Yes: WNL, Alert, Oriented ...Motor Strength: WNL Psychiatric: Yes: WNL, Alert, Oriented Labs: reviewed 02/25 Imaging - Results EKG: Other (nsr) Assessment/Plan patient is a 48 y/o female that presents for ect, labs and ekg reviewed, patient is medically optimized for procedure informed consent, risks/benefits to be obtained by Dr Parikh.
[2018-05-14 09:45] VITALS: TEMP 98.7
[2018-05-14 09:51] VITALS: BP 130/80; PULSE 84
== END 2018-05-14 10:00 | disposition home or self-care (01) ==
LOC: FECT 05:41
PROVIDERS: ATTEND Psychiatry & Neurology Psychiatry
PROC: GZB4ZZZ Other Electroconvulsive Therapy (ICD-10-PCS; principal; 2018-05-14 07:30)
DX: F33.2 Major depressive disorder, recurrent severe without psychotic features (principal)
CPT/HCPCS: 84703; 90870; 94760

== ENCOUNTER 2018-05-28 05:40 | Day surgery (SDC) | payer OTHER ==
[2018-05-28 07:02] VITALS: TEMP 98.1; BMI 24.6
[2018-05-28] MEDS ORDERED: KETAMINE HCL 500 MG/10 ML VIAL ONE (07:35)
[2018-05-28 09:16] VITALS: BP 134/84; PULSE 88
== END 2018-05-28 09:20 | disposition home or self-care (01) ==
LOC: FECT 05:40
PROVIDERS: ATTEND Psychiatry & Neurology Psychiatry
PROC: GZB4ZZZ Other Electroconvulsive Therapy (ICD-10-PCS; principal; 2018-05-28 07:15)
DX: F33.2 Major depressive disorder, recurrent severe without psychotic features (principal)
CPT/HCPCS: 84703

== ENCOUNTER 2018-06-11 05:40 | Day surgery (SDC) | payer OTHER ==
[2018-06-11 07:05] VITALS: TEMP 98.4; BMI 24.6
[2018-06-11] MEDS ORDERED: KETAMINE HCL 500 MG/10 ML VIAL ONE (07:22)
[2018-06-11 09:09] VITALS: BP 133/80; PULSE 86
== END 2018-06-11 08:50 | disposition home or self-care (01) ==
LOC: FECT 05:40
PROVIDERS: ATTEND Psychiatry & Neurology Psychiatry
PROC: GZB4ZZZ Other Electroconvulsive Therapy (ICD-10-PCS; principal; 2018-06-11 07:15)
DX: F33.2 Major depressive disorder, recurrent severe without psychotic features (principal)
CPT/HCPCS: 84703; 90870; 94760

== ENCOUNTER → 2018-07-01 | Day surgery (SDC) | payer OTHER ==
--- NOTE | 2018-07-01 07:24 | HP ---
CHIEF COMPLAINT: Major Depressive Disorder PCP: Does not recall Primary psychiatrist: Dr. Conway HISTORY OF PRESENT ILLNESS: 48 year-old female with a PMH significant for major depression. Patient has been undergoing ECT since August 2017. She presents today for ECT. 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 Smoking: quit 1994 Alcohol:no Drugs: n0 Family History: Allergies No Known Drug Allergies Allergy (Verified 03/19/18 10:58) HOME MEDICATIONS: Home Medications Medication Instructions Recorded Venlafaxine HCl ER [Effexor Xr -] 75 mg PO DAILY 12/12/17 Aripiprazole [Abilify -] 2 mg PO DAILY 02/19/18 Lamotrigine [Lamictal (Blue)] 100 mg PO DAILY 04/14/18 Lamotrigine [Lamictal (Blue)] 50 mg PO HS 04/30/18 REVIEW OF SYSTEMS CONSTITUTIONAL: Absent: fever, chills, diaphoresis, generalized weakness, malaise, loss of appetite, weight change HEENT: Absent: rhinorrhea, nasal congestion, throat pain, throat swelling, difficulty swallowing, mouth swelling, ear pain, eye pain, visual changes CARDIOVASCULAR: Absent: chest pain, syncope, palpitations, irregular heart rate, lightheadedness , peripheral edema RESPIRATORY: Absent: cough, shortness of breath, dyspnea with exertion, orthopnea, wheezing, stridor, hemoptysis GASTROINTESTINAL: Absent: abdominal pain, abdominal distension, nausea, vomiting, diarrhea, constipation, melena, hematochezia GENITOURINARY: Absent: dysuria, frequency, urgency, hesitancy, hematuria, flank pain, genital pain MUSCULOSKELETAL: Absent: myalgia, arthralgia, joint swelling, back pain, neck pain SKIN: Absent: rash, itching, pallor HEMATOLOGIC/IMMUNOLOGIC: Absent: easy bleeding, easy bruising, lymphadenopathy, frequent infections ENDOCRINE: Absent: unexplained weight gain, unexplained weight loss, heat intolerance, cold intolerance NEUROLOGIC: Absent: headache, focal weakness or paresthesias, dizziness, unsteady gait, seizure, mental status changes, bladder or bowel incontinence PSYCHIATRIC: Absent: anxiety, depression, suicidal or homicidal ideation, hallucinations. PHYSICAL EXAMINATION GENERAL: Awake, alert, and fully oriented, in no acute distress. HEAD: Normal with no signs of trauma. EYES: Pupils equal, round and reactive to light, extraocular movements intact, sclera anicteric, conjunctiva clear. No lid lag. EARS, NOSE, THROAT: Ears normal, nares patent, oropharynx clear without exudates. Moist mucous membranes. NECK: Normal range of motion, supple without lymphadenopathy, JVD, or masses. LUNGS: Breath sounds equal, clear to auscultation bilaterally. No wheezes, and no crackles. No accessory muscle use. HEART: Regular rate and rhythm, normal S1 and S2 without murmur, rub or gallop. ABDOMEN: Soft, nontender, not distended, normoactive bowel sounds, no guarding, no rebound, no masses. No hepatomegaly or splenomegaly. MUSCULOSKELETAL: Normal range of motion at all joints. No bony deformities or tenderness. No CVA tenderness. UPPER EXTREMITIES: 2+ pulses, warm, well-perfused. No cyanosis. No clubbing. No peripheral edema. LOWER EXTREMITIES: 2+ pulses, warm, well-perfused. No calf tenderness. No peripheral edema. NEUROLOGICAL: Cranial nerves II-XII intact. Normal speech. Normal gait. ASSESSMENT/PLAN: The patient is a 48 year-old female with a PMH significant for major depressive disorder. She presents today for ECT. Cardiac --no cardiac history --Revised Cardiac Risk Index for Pre-Operative Risk: 0 points, 0.4% risk of major cardiac event Pulmonary --no pulmonary history Neurological --no neurological or neurosurgical history; no history of trauma Anesthesia --no known history of problems with anesthesia ECT is a low risk procedure. The relative benefits of the planned procedure outweigh the relative risks for this patient at this time. Visit type - Emergency Visit Emergency Visit: Yes Care time: The patient presented to the Emergency Department on the above date and was hospitalized for further evaluation of their emergent condition. - New Patient This patient is new to me today: Yes Date on this admission: 07/01/18 - Critical Care Critical Care patient: No
[2018-07-01 07:34] VITALS: BMI 24.5
[2018-07-01 09:24] VITALS: TEMP 98.3
[2018-07-01 11:01] VITALS: BP 144/80; PULSE 84
== END | disposition home or self-care (01) ==
LOC: FECT 05:41
PROVIDERS: ATTEND Psychiatry & Neurology Psychiatry
PROC: GZB4ZZZ Other Electroconvulsive Therapy (ICD-10-PCS; principal; 2018-07-01 07:00)
DX: F33.2 Major depressive disorder, recurrent severe without psychotic features (principal)
CPT/HCPCS: 84703; 90870; 94760

== ENCOUNTER 2018-07-27 05:43 | Day surgery (SDC) | payer OTHER ==
[2018-07-27 06:57] VITALS: BMI 24.3
[2018-07-27] MEDS ORDERED: KETAMINE HCL 500 MG/10 ML VIAL ONE (07:34)
[2018-07-27 08:50] VITALS: PULSE 78; TEMP 98.1
[2018-07-27 09:09] VITALS: BP 110/66
== END 2018-07-27 09:11 | disposition home or self-care (01) ==
LOC: FECT 05:43
PROVIDERS: ATTEND Psychiatry & Neurology Psychiatry
PROC: GZB4ZZZ Other Electroconvulsive Therapy (ICD-10-PCS; principal; 2018-07-27 07:00)
DX: F33.2 Major depressive disorder, recurrent severe without psychotic features (principal)
CPT/HCPCS: 84703; 90870; 94760

== ENCOUNTER 2018-08-20 05:45 | Day surgery (SDC) | payer OTHER ==
[2018-08-20 07:43] VITALS: BMI 24.3
[2018-08-20] MEDS ORDERED: KETAMINE HCL SYRINGES 150 MG/3 ML VIAL ONE (08:13)
--- NOTE | 2018-08-20 08:47 | HP ---
CHIEF COMPLAINT: Major Depressive Disorder PCP: Carlyle Babcock Primary psychiatrist: Dr. Conway HISTORY OF PRESENT ILLNESS: 48 year-old female with a PMH significant for major depression. Patient has been undergoing ECT since August 2017. She presents today for ECT. 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: quit 1994 Alcohol:no Drugs: no Allergies No Known Drug Allergies Allergy (Verified 03/19/18 10:58) HOME MEDICATIONS: Home Medications Medication Instructions Recorded Venlafaxine HCl ER [Effexor Xr -] 75 mg PO DAILY 12/12/17 Aripiprazole [Abilify -] 2 mg PO DAILY 02/19/18 Lamotrigine [Lamictal] 200 mg PO DAILY 07/01/18 REVIEW OF SYSTEMS CONSTITUTIONAL: Absent: fever, chills, diaphoresis, generalized weakness, malaise, loss of appetite, weight change HEENT: Absent: rhinorrhea, nasal congestion, throat pain, throat swelling, difficulty swallowing, mouth swelling, ear pain, eye pain, visual changes CARDIOVASCULAR: Absent: chest pain, syncope, palpitations, irregular heart rate, lightheadedness , peripheral edema RESPIRATORY: Absent: cough, shortness of breath, dyspnea with exertion, orthopnea, wheezing, stridor, hemoptysis GASTROINTESTINAL: Absent: abdominal pain, abdominal distension, nausea, vomiting, diarrhea, constipation, melena, hematochezia GENITOURINARY: Absent: dysuria, frequency, urgency, hesitancy, hematuria, flank pain, genital pain MUSCULOSKELETAL: Absent: myalgia, arthralgia, joint swelling, back pain, neck pain SKIN: Absent: rash, itching, pallor HEMATOLOGIC/IMMUNOLOGIC: Absent: easy bleeding, easy bruising, lymphadenopathy, frequent infections ENDOCRINE: Absent: unexplained weight gain, unexplained weight loss, heat intolerance, cold intolerance NEUROLOGIC: Absent: headache, focal weakness or paresthesias, dizziness, unsteady gait, seizure, mental status changes, bladder or bowel incontinence PHYSICAL EXAMINATION Vital Signs - 24 hr 08/20/18 07:40 Temperature 98.2 F Pulse Rate 73 Respiratory 18 Rate Blood Pressure 126/75 O2 Sat by Pulse 98 Oximetry (%) GENERAL: Awake, alert, and fully oriented, in no acute distress. HEAD: Normal with no signs of trauma. EYES: Pupils equal, round and reactive to light, sclera anicteric, conjunctiva clear. LUNGS: Breath sounds equal, clear to auscultation bilaterally. No wheezes, and no crackles. No accessory muscle use. HEART: Regular rate and rhythm, normal S1 and S2 ABDOMEN: Soft, nontender, not distended MUSCULOSKELETAL: Normal range of motion at all joints. No bony deformities or tenderness. No CVA tenderness. UPPER EXTREMITIES: 2+ pulses, warm, well-perfused. No cyanosis. No clubbing. No peripheral edema. LOWER EXTREMITIES: 2+ pulses, warm, well-perfused. No calf tenderness. No peripheral edema. NEUROLOGICAL: Cranial nerves II-XII intact. Normal speech. Laboratory Results - last 24 hr 08/20/18 07:50 Urine HCG, Qual Negative ASSESSMENT/PLAN: 48 year-old female with a PMH significant for major depression. She presents today for ECT. Cardiac --no cardiac history --Revised Cardiac Risk Index for Pre-Operative Risk: 0 points, 0.4% risk of major cardiac event Pulmonary --no pulmonary history Neurological --no neurological or neurosurgical history; no history of trauma Anesthesia --no reported problems with anesthesia ECT is a low risk procedure. The relative benefits of the planned procedure outweigh the relative risks for this patient at this time. Visit type - Emergency Visit Emergency Visit: No - New Patient This patient is new to me today: Yes Date on this admission: 08/20/18 - Critical Care Critical Care patient: No
[2018-08-20 09:27] VITALS: TEMP 98.1
[2018-08-20 09:57] VITALS: BP 129/84; PULSE 84
== END 2018-08-20 09:45 | disposition home or self-care (01) ==
LOC: FECT 05:45
PROVIDERS: ATTEND Psychiatry & Neurology Psychiatry
PROC: GZB4ZZZ Other Electroconvulsive Therapy (ICD-10-PCS; principal; 2018-08-20 07:15)
DX: F33.2 Major depressive disorder, recurrent severe without psychotic features (principal)
CPT/HCPCS: 84703; 90870; 94760

== ENCOUNTER 2018-09-10 05:51 | Day surgery (SDC) | payer OTHER ==
[2018-09-10 07:00] VITALS: BMI 24.3
[2018-09-10] MEDS ORDERED: KETAMINE HCL SYRINGES 150 MG/3 ML ONE (07:17)
[2018-09-10 08:32] VITALS: TEMP 98.3
[2018-09-10 08:42] VITALS: BP 133/79; PULSE 88
[2018-09-10 08:48] LABS: BASO % 0.8 % (0-2.0); EOS % 1.2 % (0-4.5); HEMATOCRIT 41.3 % (32.4-45.2); HEMOGLOBIN 13.6 GM/dl (10.7-15.3); LYMPH % 27.6 % (8-40); MCH 29.8 pg (25.7-33.7); MEAN CELL VOLUME 90.2 fl (80-96); MEAN PLT VOLUME 8.2 fl (7.5-11.1); MONO % 3.5 % (3.8-10.2); NEUT % 66.9 % (42.8-82.8); PLATELET COUNT 374 K/MM3 (134-434); RBC 4.57 M/mm3 (3.60-5.2); RDW 12.7 % (11.6-15.6); WHITE BLOOD COUNT 7.8 K/mm3 (4.0-10.8)
[2018-09-10 09:02] LABS: ALBUMIN 3.8 g/dl (3.4-5.0); ALK PHOS 53 U/L (45-117); ANION GAP 7 MMOL/L (8-16); BILIRUBIN,TOTAL 0.6 mg/dl (0.2-1); BLOOD UREA NITROGEN 13 mg/dl (7-18); CALCIUM 8.9 mg/dl (8.5-10); CHLORIDE 103 mmol/L (98-107); CO2 24 mmol/L (21-32); CREATININE 0.8 mg/dl (0.55-1.3); GLUCOSE,RANDOM 104 mg/dl (74-106); MAGNESIUM 2.1 mg/dL (1.8-2.4); POTASSIUM 4.7 mmol/L (3.5-5.1); SGOT/AST 14 U/L (15-37); SGPT/ALT 13 U/L (13-61); SODIUM 134 mmol/L (136-145); TOT PROT 6.4 g/dl (6.4-8.2)
--- NOTE | 2018-09-10 14:16 | EKG ---
Test Reason : Blood Pressure : / mmHG Vent. Rate : 085 BPM Atrial Rate : 085 BPM P-R Int : 148 ms QRS Dur : 074 ms QT Int : 362 ms P-R-T Axes : 051 011 034 degrees QTc Int : 430 ms NORMAL SINUS RHYTHM POSSIBLE LEFT ATRIAL ENLARGEMENT BORDERLINE ECG WHEN COMPARED WITH ECG OF 10-MAR-2018 06:30, NO SIGNIFICANT CHANGE WAS FOUND Confirmed by NILA MUSTAFA MD ([id number]) on 09/10/2018 2:16:39 PM Referred By: Andrew Parikh Confirmed By:NILA MUSTAFA MD
== END 2018-09-10 09:00 | disposition home or self-care (01) ==
LOC: FECT 05:51
PROVIDERS: ATTEND Psychiatry & Neurology Psychiatry
PROC: GZB4ZZZ Other Electroconvulsive Therapy (ICD-10-PCS; principal; 2018-09-10 07:30)
DX: F33.2 Major depressive disorder, recurrent severe without psychotic features (principal)
CPT/HCPCS: 36415; 80053; 83735; 84703; 85025; 90870; 93005; 93010; 94760

== ENCOUNTER 2018-10-01 05:51 | Day surgery (SDC) | payer OTHER ==
[2018-10-01 07:25] VITALS: TEMP 98.5; BMI 24.3
[2018-10-01] MEDS ORDERED: KETAMINE HCL SYRINGES 150 MG/3 ML ONE (07:57)
--- NOTE | 2018-10-01 09:12 | HP ---
CHIEF COMPLAINT: Major Depressive Disorder PCP: Carlyle Babcock Primary psychiatrist: Dr. Conway HISTORY OF PRESENT ILLNESS: 48 year-old female with a PMH significant for major depression. Patient has been undergoing ECT since August 2017. She presents today for ECT. 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 Smoking: quit 1994 Alcohol:no Drugs: no Allergies No Known Drug Allergies Allergy (Verified 10/01/18 07:14) HOME MEDICATIONS: Home Medications Medication Instructions Recorded Venlafaxine HCl ER [Effexor Xr -] 75 mg PO DAILY 12/12/17 Aripiprazole [Abilify -] 2 mg PO DAILY 02/19/18 Lamotrigine [Lamictal] 200 mg PO DAILY 07/01/18 REVIEW OF SYSTEMS CONSTITUTIONAL: Absent: fever, chills, diaphoresis, generalized weakness, malaise, loss of appetite, weight change HEENT: Absent: rhinorrhea, nasal congestion, throat pain, throat swelling, difficulty swallowing, mouth swelling, ear pain, eye pain, visual changes CARDIOVASCULAR: Absent: chest pain, syncope, palpitations, irregular heart rate, lightheadedness , peripheral edema RESPIRATORY: Absent: cough, shortness of breath, dyspnea with exertion, orthopnea, wheezing, stridor, hemoptysis GASTROINTESTINAL: Absent: abdominal pain, abdominal distension, nausea, vomiting, diarrhea, constipation, melena, hematochezia GENITOURINARY: Absent: dysuria, frequency, urgency, hesitancy, hematuria, flank pain, genital pain MUSCULOSKELETAL: Absent: myalgia, arthralgia, joint swelling, back pain, neck pain SKIN: Absent: rash, itching, pallor HEMATOLOGIC/IMMUNOLOGIC: Absent: easy bleeding, easy bruising, lymphadenopathy, frequent infections ENDOCRINE: Absent: unexplained weight gain, unexplained weight loss, heat intolerance, cold intolerance NEUROLOGIC: Absent: headache, focal weakness or paresthesias, dizziness, unsteady gait, seizure, mental status changes, bladder or bowel incontinence PHYSICAL EXAMINATION Vital Signs - 24 hr 10/01/18 10/01/18 10/01/18 07:16 08:23 08:35 Temperature 98.5 F Pulse Rate 70 116 H 108 H Respiratory 16 22 H 20 Rate Blood Pressure 110/74 164/92 157/90 O2 Sat by Pulse 96 97 97 Oximetry (%) 10/01/18 10/01/18 10/01/18 08:40 08:45 08:50 Temperature 98.5 F Pulse Rate 101 H 96 H 95 H Respiratory 17 15 16 Rate Blood Pressure 148/84 144/88 140/87 O2 Sat by Pulse 96 96 Oximetry (%) GENERAL: Awake, alert, and fully oriented, in no acute distress. HEAD: Normal with no signs of trauma. EYES: Pupils equal, round and reactive to light, sclera anicteric, conjunctiva clear. LUNGS: Breath sounds equal, clear to auscultation bilaterally. No wheezes, and no crackles. No accessory muscle use. HEART: Regular rate and rhythm, normal S1 and S2 ABDOMEN: Soft, nontender, not distended MUSCULOSKELETAL: Normal range of motion at all joints. No bony deformities or tenderness. No CVA tenderness. UPPER EXTREMITIES: 2+ pulses, warm, well-perfused. No cyanosis. No clubbing. No peripheral edema. LOWER EXTREMITIES: 2+ pulses, warm, well-perfused. No calf tenderness. No peripheral edema. NEUROLOGICAL: Cranial nerves II-XII intact. Normal speech. Laboratory Results - last 24 hr 10/01/18 07:27 Urine HCG, Qual Negative ASSESSMENT/PLAN: 48 year-old female with a PMH significant for major depression. She presents today for ECT. Cardiac --no cardiac history --Revised Cardiac Risk Index for Pre-Operative Risk: 0 points, 0.4% risk of major cardiac event Pulmonary --no pulmonary history Neurological --no neurological or neurosurgical history; no history of trauma Anesthesia --no reported problems with anesthesia ECT is a low risk procedure. The relative benefits of the planned procedure outweigh the relative risks for this patient at this time. Visit type - Emergency Visit Emergency Visit: No - New Patient This patient is new to me today: Yes Date on this admission: 10/01/18 - Critical Care Critical Care patient: No
[2018-10-01 10:20] VITALS: BP 134/74; PULSE 86
[2018-10-01] MEDS ORDERED: ONDANSETRON 4 MG/2 ML VIAL IVPUSH PRN (12:02)
[2018-10-01] MEDS ORDERED: LACTATED RINGERS SOLUTION 1,000 ML IV SCH (12:15)
== END 2018-10-01 09:45 | disposition home or self-care (01) ==
LOC: FECT 05:51
PROVIDERS: ATTEND Psychiatry & Neurology Psychiatry
PROC: GZB4ZZZ Other Electroconvulsive Therapy (ICD-10-PCS; principal; 2018-10-01 07:15)
DX: F32.9 Major depressive disorder, single episode, unspecified (principal)
CPT/HCPCS: 84703; 90870; 94760

== ENCOUNTER 2018-10-20 05:47 | Day surgery (SDC) | payer OTHER ==
[2018-10-20] MEDS ORDERED: ACETAMINOPHEN 325 MG TABLET (FP) PO PRN (07:20)
[2018-10-20] MEDS ORDERED: ONDANSETRON 4 MG/2 ML VIAL IVPUSH PRN (07:20)
[2018-10-20 07:37] VITALS: TEMP 98.1; BMI 24.3
[2018-10-20] MEDS ORDERED: KETAMINE HCL SYRINGES 150 MG/3 ML ONE (08:00)
[2018-10-20 09:26] VITALS: BP 119/65; PULSE 77
== END 2018-10-20 09:30 | disposition home or self-care (01) ==
LOC: FECT 05:47
PROVIDERS: ATTEND Psychiatry & Neurology Psychiatry
PROC: GZB4ZZZ Other Electroconvulsive Therapy (ICD-10-PCS; principal; 2018-10-20 07:15)
DX: F32.9 Major depressive disorder, single episode, unspecified (principal)
CPT/HCPCS: 81025; 90870; 94760

== ENCOUNTER 2018-11-12 05:43 | Day surgery (SDC) | payer OTHER ==
[2018-11-12 07:38] VITALS: BMI 26.4
[2018-11-12] MEDS ORDERED: KETAMINE HCL SYRINGES 150 MG/3 ML ONE (08:55)
[2018-11-12 10:23] VITALS: TEMP 97.9
[2018-11-12 10:32] VITALS: BP 106/66; PULSE 86
== END 2018-11-12 10:20 | disposition home or self-care (01) ==
LOC: FECT 05:43
PROVIDERS: ATTEND Psychiatry & Neurology Psychiatry
PROC: GZB4ZZZ Other Electroconvulsive Therapy (ICD-10-PCS; principal; 2018-11-12 07:30)
DX: F32.9 Major depressive disorder, single episode, unspecified (principal)
CPT/HCPCS: 81025; 90870; 94760

== ENCOUNTER 2018-11-12 08:21 | Emergency (ER) | payer OTHER ==
[2018-11-12 08:27] VITALS: BP 128/83; PULSE 78; TEMP 98.7; BMI 27.1
--- NOTE | 2018-11-12 08:31 | PDOC ---
History of Present Illness - General Chief Complaint: Depression Stated Complaint: I NEED A PHYSICAL Time Seen by Provider: 11/12/18 08:28 - History of Present Illness Initial Comments: 11/12/18 08:34 48 years old with past medical history significant for major depression presents emergency department for medical clearance prior to ECT Patient with no complaints denies any fever chills chest pain shortness of breath nausea vomiting diarrhea no cardiac history no history of hypertension high cholesterol or arrhythmias. Past History - Past Medical History Allergies/Adverse Reactions: Allergies Allergy/AdvReac Type Severity Reaction Status Date / Time No Known Drug Allergies Allergy Verified 11/12/18 08:23 Home Medications: Ambulatory Orders Venlafaxine HCl ER [Effexor Xr -] 75 mg PO HS 12/12/17 Aripiprazole [Abilify -] 2 mg PO DAILY 02/19/18 Lamotrigine [Lamictal] 150 mg PO BID 10/20/18 Cancer: (N/A) Cardiac Disorders: No COPD: No Diabetes: No Seizures: No Thyroid Disease: No - Suicide/Smoking/Psychosocial Hx Smoking History: Former smoker Have you smoked in the past 12 months: No If you are a former smoker, when did you quit?: 1990S Information on smoking cessation initiated: No Hx Alcohol Use: No Drug/Substance Use Hx: No Substance Use Type: None Hx Substance Use Treatment: No Review of Systems - Review of Systems Comments:: 11/12/18 08:34 ROS: A complete review of 10 out of 10 review of systems is taken and is negative apart from what is previously mentioned below and in the HPI. *Physical Exam - Vital Signs Last Vital Signs Temp Pulse Resp BP Pulse Ox 98.7 F 78 16 128/83 99 11/12/18 08:23 11/12/18 08:23 11/12/18 08:23 11/12/18 08:23 11/12/18 08:23 - Physical Exam Comments: 11/12/18 08:34 Vitals: Triage Vital signs reviewed General Appearance: no acute distress, well nourished well developed, Head: Atraumatic, Chest Wall: Nontender Cardiac: Regular rate and rhythym, no murmurs, no rubs, no gallops, Lungs: Clear to auscultation bilateral, good air movement bilaterally, Abdomen: Soft, non distended, normal bowel sounds, non tender to palpation Extremities: Full range of motion to all extremities, no cyanosis, clubbing, or edema Skin: Warm and dry, no rashes or lesions, no rash, no petechiae Psych: normal mood, normal affect, chronic depression Heart Score/ECG Review - ECG Impressions Comment:: 11/12/18 08:41 EKG performed at 834 demonstrates normal sinus rhythm no ST elevations or T- wave inversions. Interpreted by me. ED Treatment Course - LABORATORY CBC & Chemistry Diagram: 11/12/18 08:34 Medical Decision Making - Medical Decision Making 11/12/18 08:35 48 years old with past medical history significant for depression presents to the emergency department for preoperative clearance prior to ECT. Patient has had ECT in the past with medications Cardiac No cardiac history or virus cardiac index for preoperative clearance 0 points. 0.4% risk of major cardiac event Pulmonary no past pulmonary history Neurologic no previous neurologic and neurosurgical history. No history of trauma. Anesthesia no previous issues with anesthesia ECT is a low risk procedure. Relative benefits of the procedure outweigh the risks. Labs have been sent in the emergency department patient's labs from August were all within normal limits. Patient medically clear for general anesthesia pending today's laboratory results *DC/Admit/Observation/Transfer Diagnosis at time of Disposition: Physical exam - Discharge Dispostion Disposition: HOME Decision to Admit order: No - Referrals Referrals: Tan Santillan [Primary Care Provider] - - Patient Instructions Printed Discharge Instructions: DI for Depression -- Adult Additional Instructions: Patient medically clear for ECT pending today's lab results. - Post Discharge Activity Forms/Work/School Notes: My Personal Safety Plan
[2018-11-12 08:43] LABS: BASO % 0.4 % (0-2.0); EOS % 1.4 % (0-4.5); HEMOGLOBIN 13.6 GM/dl (10.7-15.3); LYMPH % 38.8 % (8-40); MCH 30.1 pg (25.7-33.7); MCHC 33.3 g/dl (32.0-36.0); MEAN CELL VOLUME 90.5 fl (80-96); MEAN PLT VOLUME 8.1 fl (7.5-11.1); MONO % 4.3 % (3.8-10.2); NEUT % 55.1 % (42.8-82.8); PLATELET COUNT 388 K/MM3 (134-434); RBC 4.53 M/mm3 (3.60-5.2); RDW 12.7 % (11.6-15.6); WHITE BLOOD COUNT 9.2 K/mm3 (4.0-10.8)
[2018-11-12 09:02] LABS: ALBUMIN 4.1 g/dl (3.4-5.0); ALK PHOS 49 U/L (45-117); ANION GAP 7 MMOL/L (8-16); BILIRUBIN,TOTAL 0.6 mg/dl (0.2-1); BLOOD UREA NITROGEN 13 mg/dl (7-18); CALCIUM 9.1 mg/dl (8.5-10); CHLORIDE 107 mmol/L (98-107); CO2 25 mmol/L (21-32); CREATININE 0.8 mg/dl (0.55-1.3); GLUCOSE,RANDOM 104 mg/dl (74-106); POTASSIUM 4.3 mmol/L (3.5-5.1); SGOT/AST 15 U/L (15-37); SGPT/ALT 13 U/L (13-61); SODIUM 139 mmol/L (136-145); TOT PROT 6.5 g/dl (6.4-8.2)
--- NOTE | 2018-11-12 11:49 | EKG ---
Test Reason : Blood Pressure : / mmHG Vent. Rate : 078 BPM Atrial Rate : 078 BPM P-R Int : 144 ms QRS Dur : 076 ms QT Int : 388 ms P-R-T Axes : 058 030 049 degrees QTc Int : 442 ms NORMAL SINUS RHYTHM NORMAL ECG WHEN COMPARED WITH ECG OF 10-SEP-2018 08:20, NO SIGNIFICANT CHANGE WAS FOUND Confirmed by NILA MUSTAFA MD ([id number]) on 11/12/2018 11:49:36 AM Referred By: NILA MORFIN Confirmed By:NILA MUSTAFA MD
== END 2018-11-12 08:46 | disposition home or self-care (01) ==
LOC: FER 08:21
DX: Z01.818 Encounter for other preprocedural examination (principal); F32.9 Major depressive disorder, single episode, unspecified; Z87.891 Personal history of nicotine dependence
CPT/HCPCS: 36415; 80053; 85025; 93005; 99282-25

== ENCOUNTER 2018-12-03 05:39 | Day surgery (SDC) | payer OTHER ==
[2018-12-03 06:38] VITALS: TEMP 98.1; BMI 27.3
[2018-12-03] MEDS ORDERED: KETAMINE HCL 500 MG/10 ML VIAL ONE (06:57)
[2018-12-03 08:55] VITALS: BP 126/74; PULSE 86
== END 2018-12-03 08:45 | disposition home or self-care (01) ==
LOC: FECT 05:39
PROVIDERS: ATTEND Psychiatry & Neurology Psychiatry
PROC: GZB4ZZZ Other Electroconvulsive Therapy (ICD-10-PCS; principal; 2018-12-03 07:00)
DX: F32.9 Major depressive disorder, single episode, unspecified (principal)
CPT/HCPCS: 81025; 90870; 94760

== ENCOUNTER 2018-12-29 05:37 | Day surgery (SDC) | payer OTHER ==
[2018-12-03 12:15] VITALS: BMI 27.3
[2018-12-29] MEDS ORDERED: KETAMINE HCL 500 MG/10 ML VIAL ONE (07:42)
[2018-12-29 09:25] VITALS: BP 121/74; PULSE 71; TEMP 98
--- NOTE | 2018-12-31 09:42 | HP ---
CHIEF COMPLAINT: Major Depressive Disorder PCP: PCP: Carlyle Babcock Primary psychiatrist: Dr. Conway HISTORY OF PRESENT ILLNESS: 48 year-old female with a PMH significant for major depression. Patient has been undergoing ECT since August 2017. She presents today for ECT. 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: quit 1994 Alcohol:no Drugs: no Allergies No Known Drug Allergies Allergy (Verified 11/12/18 08:23) HOME MEDICATIONS: Home Medications Medication Instructions Recorded Venlafaxine HCl ER [Effexor Xr -] 75 mg PO HS 12/12/17 Aripiprazole [Abilify -] 2 mg PO DAILY 02/19/18 Lamotrigine [Lamictal] 150 mg PO BID 10/20/18 REVIEW OF SYSTEMS CONSTITUTIONAL: Absent: fever, chills, diaphoresis, generalized weakness, malaise, loss of appetite, weight change HEENT: Absent: rhinorrhea, nasal congestion, throat pain, throat swelling, difficulty swallowing, mouth swelling, ear pain, eye pain, visual changes CARDIOVASCULAR: Absent: chest pain, syncope, palpitations, irregular heart rate, lightheadedness , peripheral edema RESPIRATORY: Absent: cough, shortness of breath, dyspnea with exertion, orthopnea, wheezing, stridor, hemoptysis GASTROINTESTINAL: Absent: abdominal pain, abdominal distension, nausea, vomiting, diarrhea, constipation, melena, hematochezia GENITOURINARY: Absent: dysuria, frequency, urgency, hesitancy, hematuria, flank pain, genital pain MUSCULOSKELETAL: Absent: myalgia, arthralgia, joint swelling, back pain, neck pain SKIN: Absent: rash, itching, pallor HEMATOLOGIC/IMMUNOLOGIC: Absent: easy bleeding, easy bruising, lymphadenopathy, frequent infections ENDOCRINE: Absent: unexplained weight gain, unexplained weight loss, heat intolerance, cold intolerance NEUROLOGIC: Absent: headache, focal weakness or paresthesias, dizziness, unsteady gait, seizure, mental status changes, bladder or bowel incontinence PHYSICAL EXAMINATION Vital Signs Temperature 98 F 12/29/18 09:05 Pulse Rate 71 12/29/18 09:05 Respiratory Rate 18 12/29/18 09:05 Blood Pressure 121/74 12/29/18 09:05 O2 Sat by Pulse Oximetry (%) 98 12/29/18 09:05 GENERAL: Awake, alert, and fully oriented, in no acute distress. HEAD: Normal with no signs of trauma. EYES: Pupils equal, round and reactive to light, sclera anicteric, conjunctiva clear. LUNGS: Breath sounds equal, clear to auscultation bilaterally. No wheezes, and no crackles. No accessory muscle use. HEART: Regular rate and rhythm, normal S1 and S2 ABDOMEN: Soft, nontender, not distended MUSCULOSKELETAL: Normal range of motion at all joints. No bony deformities or tenderness. No CVA tenderness. UPPER EXTREMITIES: 2+ pulses, warm, well-perfused. No cyanosis. No clubbing. No peripheral edema. LOWER EXTREMITIES: 2+ pulses, warm, well-perfused. No calf tenderness. No peripheral edema. NEUROLOGICAL: Cranial nerves II-XII intact. Normal speech. ASSESSMENT/PLAN: 48 year-old female with a PMH significant for major depression. She presents today for ECT. Cardiac --no cardiac history --Revised Cardiac Risk Index for Pre-Operative Risk: 0 points, 0.4% risk of major cardiac event Pulmonary --no pulmonary history Neurological --no neurological or neurosurgical history; no history of trauma Anesthesia --no reported problems with anesthesia ECT is a low risk procedure. The relative benefits of the planned procedure outweigh the relative risks for this patient at this time. Visit type - Emergency Visit Emergency Visit: No - New Patient This patient is new to me today: Yes Date on this admission: 12/31/18 - Critical Care Critical Care patient: No
== END 2018-12-29 09:10 | disposition home or self-care (01) ==
LOC: FECT 05:37
PROVIDERS: ATTEND Psychiatry & Neurology Psychiatry
PROC: GZB4ZZZ Other Electroconvulsive Therapy (ICD-10-PCS; principal; 2018-12-29 07:00)
DX: F32.9 Major depressive disorder, single episode, unspecified (principal)
CPT/HCPCS: 81025; 90870; 94760

== ENCOUNTER 2019-01-22 05:32 | Day surgery (SDC) | payer OTHER | END 2019-01-22 10:00 | disposition home or self-care (01) | LOC: FECT 05:32 ==

== ENCOUNTER → 2019-02-16 | Day surgery (SDC) | payer OTHER ==
[2019-01-29 17:42] VITALS: BMI 27.3
[~2019-02-16] MED LIST changes: +LACTATED RINGERS SOLUTION 1,000 ML IV SCH
--- NOTE | 2019-02-16 08:40 | HP ---
CHIEF COMPLAINT: PCP: Dr. Tyrell Tadeo Primary Psychiatrist: Dr. Conway HISTORY OF PRESENT ILLNESS: 48 year old F with h/o MDD who has been undergoing ECT since Aug 2017 presents for scheduled therapy. She has no complaints pre- procedure. 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 Allergies: No Known Drug Allergies Allergy (Verified 11/12/18 08:23) HOME MEDICATIONS: Home Medications Medication Instructions Recorded Venlafaxine HCl ER [Effexor Xr -] 75 mg PO HS 12/12/17 Aripiprazole [Abilify -] 2 mg PO DAILY 02/19/18 Lamotrigine [Lamictal] 150 mg PO BID 10/20/18 REVIEW OF SYSTEMS CONSTITUTIONAL: denies: fever, chills, diaphoresis, generalized weakness, malaise, loss of appetite, weight change HEENT: denies: rhinorrhea, nasal congestion, throat pain, throat swelling, difficulty swallowing, mouth swelling, ear pain, eye pain, visual changes CARDIOVASCULAR: denies: chest pain, syncope, palpitations, irregular heart rate , lightheadedness, peripheral edema RESPIRATORY: denies: cough, shortness of breath, dyspnea with exertion, orthopnea, wheezing, stridor, hemoptysis GASTROINTESTINAL: denies: abdominal pain, abdominal distension, nausea, vomiting , diarrhea, constipation, melena, hematochezia GENITOURINARY: denies: dysuria, frequency, urgency, hesitancy, hematuria, flank pain, genital pain MUSCULOSKELETAL: denies: myalgia, arthralgia, joint swelling, back pain, neck pain SKIN: denies rash, itching, pallor HEMATOLOGIC/IMMUNOLOGIC: denies: easy bleeding, easy bruising, lymphadenopathy, frequent infections ENDOCRINE: denies: unexplained weight gain, unexplained weight loss, heat intolerance, cold intolerance NEUROLOGIC: denies: headache, focal weakness or paresthesias, dizziness, unsteady gait, seizure, mental status changes, bladder or bowel incontinence PHYSICAL EXAMINATION Vital Signs - 24 hr 02/16/19 07:29 Temperature 97.4 F L Pulse Rate 86 Respiratory 18 Rate Blood Pressure 128/68 O2 Sat by Pulse 97 Oximetry (%) GENERAL: Awake, alert, and fully oriented, in no acute distress. HEAD: Normal with no signs of trauma. EYES: Pupils equal, round and reactive to light, sclera anicteric, conjunctiva clear. LUNGS: Breath sounds equal, clear to auscultation bilaterally. No wheezes, and no crackles. No accessory muscle use. HEART: Regular rate and rhythm, normal S1 and S2 ABDOMEN: Soft, nontender, not distended MUSCULOSKELETAL: Normal range of motion at all joints. No bony deformities or tenderness. No CVA tenderness. UPPER EXTREMITIES: 2+ pulses, warm, well-perfused. No cyanosis. No clubbing. No peripheral edema. LOWER EXTREMITIES: 2+ pulses, warm, well-perfused. No calf tenderness. No peripheral edema. NEUROLOGICAL: Cranial nerves II-XII intact. Normal speech. Laboratory Results - last 24 hr 02/16/19 07:30 Urine HCG, Qual Negative ASSESSMENT/PLAN: 48 year old F with MDD medically stable for ECT. Cardiac --no cardiac history --Revised Cardiac Risk Index for Pre-Operative Risk: 0 points, 0.4% risk of major cardiac event Pulmonary --no pulmonary history Neurological --no neurological or neurosurgical history; no history of trauma Anesthesia --no reported problems with anesthesia ECT is a low risk procedure. The relative benefits of the planned procedure outweigh the relative risks for this patient at this time. Problem List - Problem (1) MDD (major depressive disorder) Code(s): F32.9 - MAJOR DEPRESSIVE DISORDER, SINGLE EPISODE, UNSPECIFIED (2) Physical exam Code(s): Z00.00 - ENCNTR FOR GENERAL ADULT MEDICAL EXAM W/O ABNORMAL FINDINGS Visit type - Emergency Visit Emergency Visit: No - New Patient This patient is new to me today: Yes Date on this admission: 02/16/19 - Critical Care Critical Care patient: No
[2019-02-16 09:35] VITALS: BP 116/66; PULSE 88; TEMP 97.5
== END | disposition home or self-care (01) ==
LOC: FECT 05:32
PROVIDERS: ATTEND Psychiatry & Neurology Psychiatry
PROC: GZB4ZZZ Other Electroconvulsive Therapy (ICD-10-PCS; principal; 2019-02-16 07:00)
DX: F32.9 Major depressive disorder, single episode, unspecified (principal)
CPT/HCPCS: 84703; 90870; 94760

== ENCOUNTER 2019-03-09 05:39 | Day surgery (SDC) | payer OTHER ==
[2019-03-09 07:10] VITALS: BMI 28.6
[2019-03-09] MEDS ORDERED: KETAMINE HCL 500 MG/10 ML VIAL ONE (07:59)
[2019-03-09] MEDS ORDERED: oxyCODONE HCL 5 MG TABLET PO PRN (08:46)
[2019-03-09 09:19] VITALS: TEMP 97.8
[2019-03-09 09:36] VITALS: BP 121/71; PULSE 88
== END 2019-03-09 09:30 | disposition home or self-care (01) ==
LOC: FECT 05:39
PROVIDERS: ATTEND Psychiatry & Neurology Psychiatry
PROC: GZB4ZZZ Other Electroconvulsive Therapy (ICD-10-PCS; principal; 2019-03-09 07:00)
DX: F33.2 Major depressive disorder, recurrent severe without psychotic features (principal)
CPT/HCPCS: 81025; 90870; 94760

== ENCOUNTER 2019-03-30 05:39 | Day surgery (SDC) | payer OTHER ==
--- NOTE | 2019-03-30 06:52 | HP ---
CHIEF COMPLAINT: Major Depressive Disorder PCP: PCP: Carlyle Babcock Primary psychiatrist: Dr. Conway HISTORY OF PRESENT ILLNESS: 49 year-old female with a PMH significant for major depression. Patient has been undergoing ECT since August 2017. She presents today for ECT. 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: quit 1994 Alcohol:no Drugs: no Family history: non-contributory Allergies No Known Drug Allergies Allergy (Verified 11/12/18 08:23) Allergies No Known Drug Allergies Allergy (Verified 03/09/19 07:02) HOME MEDICATIONS: Home Medications Medication Instructions Recorded Venlafaxine HCl ER [Effexor Xr -] 75 mg PO HS 12/12/17 Aripiprazole [Abilify -] 2 mg PO DAILY 02/19/18 Lamotrigine [Lamictal] 150 mg PO BID 10/20/18 REVIEW OF SYSTEMS CONSTITUTIONAL: Absent: fever, chills, diaphoresis, generalized weakness, malaise, loss of appetite, weight change HEENT: Absent: rhinorrhea, nasal congestion, throat pain, throat swelling, difficulty swallowing, mouth swelling, ear pain, eye pain, visual changes CARDIOVASCULAR: Absent: chest pain, syncope, palpitations, irregular heart rate, lightheadedness , peripheral edema RESPIRATORY: Absent: cough, shortness of breath, dyspnea with exertion, orthopnea, wheezing, stridor, hemoptysis GASTROINTESTINAL: Absent: abdominal pain, abdominal distension, nausea, vomiting, diarrhea, constipation, melena, hematochezia GENITOURINARY: Absent: dysuria, frequency, urgency, hesitancy, hematuria, flank pain, genital pain MUSCULOSKELETAL: Absent: myalgia, arthralgia, joint swelling, back pain, neck pain SKIN: Absent: rash, itching, pallor HEMATOLOGIC/IMMUNOLOGIC: Absent: easy bleeding, easy bruising, lymphadenopathy, frequent infections ENDOCRINE: Absent: unexplained weight gain, unexplained weight loss, heat intolerance, cold intolerance NEUROLOGIC: Absent: headache, focal weakness or paresthesias, dizziness, unsteady gait, seizure, mental status changes, bladder or bowel incontinence PHYSICAL EXAMINATION GENERAL: Awake, alert, and fully oriented, in no acute distress. HEAD: Normal with no signs of trauma. EYES: Pupils equal, round and reactive to light, sclera anicteric, conjunctiva clear. LUNGS: Breath sounds equal, clear to auscultation bilaterally. No wheezes, and no crackles. No accessory muscle use. HEART: Regular rate and rhythm, normal S1 and S2 ABDOMEN: Soft, nontender, not distended MUSCULOSKELETAL: Normal range of motion at all joints. No bony deformities or tenderness. No CVA tenderness. UPPER EXTREMITIES: 2+ pulses, warm, well-perfused. No cyanosis. No clubbing. No peripheral edema. LOWER EXTREMITIES: 2+ pulses, warm, well-perfused. No calf tenderness. No peripheral edema. NEUROLOGICAL: Cranial nerves II-XII intact. Normal speech. ASSESSMENT/PLAN: 49 year-old female with a PMH significant for major depression. She presents today for ECT. Cardiac --no cardiac history --Revised Cardiac Risk Index for Pre-Operative Risk: 0 points, 0.4% risk of major cardiac event Pulmonary --no pulmonary history Neurological --no neurological or neurosurgical history; no history of trauma Anesthesia --no reported problems with anesthesia ECT is a low risk procedure. The relative benefits of the planned procedure outweigh the relative risks for this patient at this time. Visit type - Emergency Visit Emergency Visit: No - New Patient This patient is new to me today: Yes Date on this admission: 03/30/19 - Critical Care Critical Care patient: No
[2019-03-30 07:27] VITALS: BMI 25.0
[2019-03-30] MEDS ORDERED: oxyCODONE HCL 5 MG TABLET PO PRN (07:37)
[2019-03-30] MEDS ORDERED: ONDANSETRON 4 MG/2 ML VIAL IVPUSH PRN (07:37)
[2019-03-30 08:56] VITALS: TEMP 98.2
[2019-03-30 09:37] VITALS: BP 108/64; PULSE 56
== END 2019-03-30 09:39 | disposition home or self-care (01) ==
LOC: FECT 05:39
PROVIDERS: ATTEND Psychiatry & Neurology Psychiatry
PROC: GZB4ZZZ Other Electroconvulsive Therapy (ICD-10-PCS; principal; 2019-03-30 07:15)
DX: F31.89 Other bipolar disorder (principal)
CPT/HCPCS: 81025; 90870; 94760

== ENCOUNTER 2019-04-29 05:37 | Day surgery (SDC) | payer OTHER ==
[2019-04-29 06:47] VITALS: BMI 27.7
[2019-04-29] MEDS ORDERED: PROPOFOL 1,000,000 MCG/100 ML VIAL ONE (07:06)
[2019-04-29] MEDS ORDERED: KETOROLAC TROMETHAMINE 30 MG/1 ML VIAL ONE (07:08)
[2019-04-29] MEDS ORDERED: PHENYLEPHRINE HCL 10 MG/1 ML SINGLE DOSE VIAL ONE (07:08)
[2019-04-29] MEDS ORDERED: SUCCINYLCHOLINE CHLORIDE 200 MG/10 ML SYRINGE ONE (07:08)
[2019-04-29] MEDS ORDERED: ONDANSETRON 4 MG/2 ML VIAL ONE (07:08)
[2019-04-29] MEDS ORDERED: PROMETHAZINE HCL 25 MG/1 ML VIAL IVPUSH PRN (08:10)
[2019-04-29] MEDS ORDERED: ACETAMINOPHEN 500 MG TABLET (FP) PO PRN (08:10)
[2019-04-29] MEDS ORDERED: LACTATED RINGERS SOLUTION 1,000 ML IV SCH (08:15)
[2019-04-29 08:17] VITALS: TEMP 97.7
[2019-04-29 08:35] VITALS: BP 112/79; PULSE 71
== END 2019-04-29 09:05 | disposition home or self-care (01) ==
LOC: FECT 05:37
PROVIDERS: ATTEND Psychiatry & Neurology Psychiatry
PROC: GZB4ZZZ Other Electroconvulsive Therapy (ICD-10-PCS; principal; 2019-04-29 07:00)
DX: F31.62 Bipolar disorder, current episode mixed, moderate (principal)
CPT/HCPCS: 81025; 90870; 94760

== ENCOUNTER 2019-05-27 05:40 | Day surgery (SDC) | payer OTHER ==
[2019-05-27 07:18] VITALS: TEMP 98.1; BMI 27.8
--- NOTE | 2019-05-27 07:30 | HP ---
CHIEF COMPLAINT: Major Depressive Disorder PCP: PCP: Carlyle Babcock Primary psychiatrist: Dr. Conway HISTORY OF PRESENT ILLNESS: 49 year-old female with a PMH significant for major depression. Patient has been undergoing ECT since August 2017. She presents today for ECT. 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 Smoking: quit 1994 Alcohol:no Drugs: no Family history: mother 79 leukemia; father 63 CVA; 1 brother, 2 sisters, 2 children all a&w Allergies No Known Drug Allergies Allergy (Verified 11/12/18 08:23) HOME MEDICATIONS: Home Medications Medication Instructions Recorded Venlafaxine HCl ER [Effexor Xr -] 75 mg PO HS 12/12/17 Aripiprazole [Abilify -] 2 mg PO DAILY 02/19/18 Lamotrigine [Lamictal] 150 mg PO BID 10/20/18 REVIEW OF SYSTEMS CONSTITUTIONAL: Absent: fever, chills, diaphoresis, generalized weakness, malaise, loss of appetite, weight change HEENT: Absent: rhinorrhea, nasal congestion, throat pain, throat swelling, difficulty swallowing, mouth swelling, ear pain, eye pain, visual changes CARDIOVASCULAR: Absent: chest pain, syncope, palpitations, irregular heart rate, lightheadedness , peripheral edema RESPIRATORY: Absent: cough, shortness of breath, dyspnea with exertion, orthopnea, wheezing, stridor, hemoptysis GASTROINTESTINAL: Absent: abdominal pain, abdominal distension, nausea, vomiting, diarrhea, constipation, melena, hematochezia GENITOURINARY: Absent: dysuria, frequency, urgency, hesitancy, hematuria, flank pain, genital pain MUSCULOSKELETAL: Absent: myalgia, arthralgia, joint swelling, back pain, neck pain SKIN: Absent: rash, itching, pallor HEMATOLOGIC/IMMUNOLOGIC: Absent: easy bleeding, easy bruising, lymphadenopathy, frequent infections ENDOCRINE: Absent: unexplained weight gain, unexplained weight loss, heat intolerance, cold intolerance NEUROLOGIC: Absent: headache, focal weakness or paresthesias, dizziness, unsteady gait, seizure, mental status changes, bladder or bowel incontinence PHYSICAL EXAMINATION Vital Signs - 24 hr 05/27/19 07:12 Temperature 98.1 F Pulse Rate 68 Respiratory 18 Rate Blood Pressure 141/74 O2 Sat by Pulse 96 Oximetry (%) GENERAL: Awake, alert, and fully oriented, in no acute distress. HEAD: Normal with no signs of trauma. EYES: Pupils equal, round and reactive to light, sclera anicteric, conjunctiva clear. LUNGS: Breath sounds equal, clear to auscultation bilaterally. No wheezes, and no crackles. No accessory muscle use. HEART: Regular rate and rhythm, normal S1 and S2 ABDOMEN: Soft, nontender, not distended MUSCULOSKELETAL: Normal range of motion at all joints. No bony deformities or tenderness. No CVA tenderness. UPPER EXTREMITIES: 2+ pulses, warm, well-perfused. No cyanosis. No clubbing. No peripheral edema. LOWER EXTREMITIES: 2+ pulses, warm, well-perfused. No calf tenderness. No peripheral edema. NEUROLOGICAL: Cranial nerves II-XII intact. Normal speech. ASSESSMENT/PLAN: 49 year-old female with a PMH significant for major depression. She presents today for ECT. Cardiac --no cardiac history --Revised Cardiac Risk Index for Pre-Operative Risk: 0 points, 0.4% risk of major cardiac event Pulmonary --no pulmonary history Neurological --no neurological or neurosurgical history; no history of trauma Anesthesia --no reported problems with anesthesia ECT is a low risk procedure. The relative benefits of the planned procedure outweigh the relative risks for this patient at this time. Visit type - Emergency Visit Emergency Visit: No - New Patient This patient is new to me today: Yes Date on this admission: 05/27/19 - Critical Care Critical Care patient: No
[2019-05-27] MEDS ORDERED: KETAMINE HCL 500 MG/10 ML VIAL ONE (07:58)
[2019-05-27 09:31] VITALS: BP 129/77; PULSE 84
== END 2019-05-27 09:25 | disposition home or self-care (01) ==
LOC: FECT 05:40
PROVIDERS: ATTEND Psychiatry & Neurology Psychiatry
PROC: GZB4ZZZ Other Electroconvulsive Therapy (ICD-10-PCS; principal; 2019-05-27 07:15)
DX: F32.9 Major depressive disorder, single episode, unspecified (principal)
CPT/HCPCS: 81025; 90870; 94760

== ENCOUNTER 2019-06-24 05:40 | Day surgery (SDC) | payer OTHER ==
[2019-06-24 07:05] VITALS: BMI 27.8
[2019-06-24] MEDS ORDERED: KETAMINE HCL 500 MG/10 ML VIAL ONE (07:28)
[2019-06-24 08:33] VITALS: TEMP 98.6
[2019-06-24 09:55] VITALS: BP 119/62; PULSE 82
== END 2019-06-24 09:45 | disposition home or self-care (01) ==
LOC: FECT 05:40
PROVIDERS: ATTEND Psychiatry & Neurology Psychiatry
PROC: GZB4ZZZ Other Electroconvulsive Therapy (ICD-10-PCS; principal; 2019-06-24 07:15)
DX: F31.9 Bipolar disorder, unspecified (principal)
CPT/HCPCS: 81025; 90870; 94760

== ENCOUNTER 2019-07-29 06:54 | Day surgery (SDC) | payer OTHER ==
[2019-07-29] MEDS ORDERED: LACTATED RINGERS SOLUTION 1,000 ML IV SCH (07:00)
[2019-07-29 07:29] VITALS: TEMP 98.1; BMI 28.5
[2019-07-29 08:07] LABS: BASO % 0.4 % (0-2.0); EOS % 1.6 % (0-4.5); HEMATOCRIT 39.7 % (32.4-45.2); HEMOGLOBIN 13.3 GM/dl (10.7-15.3); LYMPH % 40.7 % (8-40); MCH 29.9 pg (25.7-33.7); MCHC 33.4 g/dl (32.0-36.0); MEAN CELL VOLUME 89.6 fl (80-96); MEAN PLT VOLUME 7.8 fl (7.5-11.1); MONO % 4.8 % (3.8-10.2); NEUT % 52.5 % (42.8-82.8); PLATELET COUNT 409 K/MM3 (134-434); RBC 4.43 M/mm3 (3.60-5.2); RDW 13.3 % (11.6-15.6); WHITE BLOOD COUNT 7.8 K/mm3 (4.0-10.8)
[2019-07-29 08:17] LABS: CALCIUM 8.8 mg/dl (8.5-10); CREATININE 0.8 mg/dl (0.55-1.3); MAGNESIUM 2.1 mg/dL (1.8-2.4); POTASSIUM 4.2 mmol/L (3.5-5.1)
[2019-07-29] MEDS ORDERED: KETAMINE HCL 500 MG/10 ML VIAL ONE (08:23)
[2019-07-29 09:56] VITALS: BP 128/73; PULSE 76
--- NOTE | 2019-07-29 11:59 | EKG ---
Test Reason : Blood Pressure : / mmHG Vent. Rate : 070 BPM Atrial Rate : 070 BPM P-R Int : 144 ms QRS Dur : 080 ms QT Int : 420 ms P-R-T Axes : 006 017 046 degrees QTc Int : 453 ms NORMAL SINUS RHYTHM NORMAL ECG WHEN COMPARED WITH ECG OF 12-NOV-2018 08:34, NO SIGNIFICANT CHANGE WAS FOUND Confirmed by NILA MUSTAFA MD ([id number]) on 07/29/2019 11:59:07 AM Referred By: Andrew Parikh Confirmed By:NILA MUSTAFA MD
--- NOTE | 2019-07-29 19:25 | HP ---
CHIEF COMPLAINT: PCP: Primary Psychiatrist: HISTORY OF PRESENT ILLNESS: Recent Events: PAST MEDICAL HISTORY: PAST SURGICAL HISTORY: Social History: Smoking: Alcohol: Drugs: Allergies No Known Drug Allergies Allergy (Verified 07/29/19 07:31) HOME MEDICATIONS: Home Medications Medication Instructions Recorded Venlafaxine HCl ER [Effexor Xr -] 75 mg PO HS 12/12/17 Aripiprazole [Abilify -] 2 mg PO DAILY 02/19/18 Lamotrigine [Lamictal] 150 mg PO BID 10/20/18 REVIEW OF SYSTEMS CONSTITUTIONAL: Absent: fever, chills, diaphoresis, generalized weakness, malaise, loss of appetite, weight change HEENT: Absent: rhinorrhea, nasal congestion, throat pain, throat swelling, difficulty swallowing, mouth swelling, ear pain, eye pain, visual changes CARDIOVASCULAR: Absent: chest pain, syncope, palpitations, irregular heart rate, lightheadedness , peripheral edema RESPIRATORY: Absent: cough, shortness of breath, dyspnea with exertion, orthopnea, wheezing, stridor, hemoptysis GASTROINTESTINAL: Absent: abdominal pain, abdominal distension, nausea, vomiting, diarrhea, constipation, melena, hematochezia GENITOURINARY: Absent: dysuria, frequency, urgency, hesitancy, hematuria, flank pain, genital pain MUSCULOSKELETAL: Absent: myalgia, arthralgia, joint swelling, back pain, neck pain SKIN: Absent: rash, itching, pallor HEMATOLOGIC/IMMUNOLOGIC: Absent: easy bleeding, easy bruising, lymphadenopathy, frequent infections ENDOCRINE: Absent: unexplained weight gain, unexplained weight loss, heat intolerance, cold intolerance NEUROLOGIC: Absent: headache, focal weakness or paresthesias, dizziness, unsteady gait, seizure, mental status changes, bladder or bowel incontinence PHYSICAL EXAMINATION Vital Signs - 24 hr 07/29/19 07/29/19 07/29/19 07:14 08:45 08:50 Temperature 98.1 F Pulse Rate 76 111 H 99 H Respiratory 18 16 14 Rate Blood Pressure 117/74 155/84 137/79 O2 Sat by Pulse 98 100 98 Oximetry (%) 07/29/19 07/29/19 07/29/19 08:55 09:00 09:10 Temperature 97.6 F Pulse Rate 98 H 92 H 82 Respiratory 16 17 18 Rate Blood Pressure 135/78 137/76 134/91 O2 Sat by Pulse 99 98 95 Oximetry (%) 07/29/19 07/29/19 07/29/19 09:12 09:40 09:57 Temperature 98.1 F 98.1 F Pulse Rate 92 H 76 76 Respiratory 17 18 18 Rate Blood Pressure 137/76 128/73 128/73 O2 Sat by Pulse 98 96 Oximetry (%) GENERAL: Awake, alert, and fully oriented, in no acute distress. HEAD: Normal with no signs of trauma. EYES: Pupils equal, round and reactive to light, sclera anicteric, conjunctiva clear. LUNGS: Breath sounds equal, clear to auscultation bilaterally. No wheezes, and no crackles. No accessory muscle use. HEART: Regular rate and rhythm, normal S1 and S2 ABDOMEN: Soft, nontender, not distended MUSCULOSKELETAL: Normal range of motion at all joints. No bony deformities or tenderness. No CVA tenderness. UPPER EXTREMITIES: 2+ pulses, warm, well-perfused. No cyanosis. No clubbing. No peripheral edema. LOWER EXTREMITIES: 2+ pulses, warm, well-perfused. No calf tenderness. No peripheral edema. NEUROLOGICAL: Cranial nerves II-XII intact. Normal speech. Laboratory Results - last 24 hr 07/29/19 07/29/19 07/29/19 07:42 07:50 07:50 WBC 7.8 RBC 4.43 Hgb 13.3 Hct 39.7 MCV 89.6 MCH 29.9 MCHC 33.4 RDW 13.3 Plt Count 409 MPV 7.8 Absolute Neuts (auto) 4.1 Neutrophils % 52.5 Lymphocytes % 40.7 H Monocytes % 4.8 Eosinophils % 1.6 Basophils % 0.4 Sodium 137 Potassium 4.2 Chloride 105 Carbon Dioxide 26 Anion Gap 6 L BUN 16.0 Creatinine 0.8 Est GFR (CKD-EPI)AfAm 98.93 Est GFR (CKD-EPI)NonAf 85.36 Random Glucose 110 H Calcium 8.8 Magnesium 2.1 Urine HCG, Qual Negative ASSESSMENT/PLAN: Cardiac --no cardiac history --Revised Cardiac Risk Index for Pre-Operative Risk: 0 points, 0.4% risk of major cardiac event Pulmonary --no pulmonary history Neurological --no neurological or neurosurgical history; no history of trauma Anesthesia --no reported problems with anesthesia ECT is a low risk procedure. The relative benefits of the planned procedure outweigh the relative risks for this patient at this time.
== END 2019-07-29 09:58 | disposition home or self-care (01) ==
LOC: FECT 06:54
PROVIDERS: ATTEND Psychiatry & Neurology Psychiatry
PROC: GZB4ZZZ Other Electroconvulsive Therapy (ICD-10-PCS; principal; 2019-07-29 07:00)
DX: F31.89 Other bipolar disorder (principal)
CPT/HCPCS: 36415; 80048; 83735; 84703; 85025; 90870; 93005; 94760

== ENCOUNTER 2019-09-02 05:44 | Day surgery (SDC) | payer OTHER ==
[2019-09-02 07:14] VITALS: TEMP 98.1; BMI 29.5
--- NOTE | 2019-09-02 07:41 | HP ---
CHIEF COMPLAINT: Major Depressive Disorder PCP: PCP: Carlyle Babcock Primary psychiatrist: Dr. Conway HISTORY OF PRESENT ILLNESS: 49 year-old female with a PMH significant for major depression. Patient has been undergoing ECT since August 2017. She presents today for ECT. 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: quit 1994 Alcohol:no Drugs: no Family history: mother 79 leukemia; father 63 CVA; 1 brother, 2 sisters, 2 children all a&w Allergies No Known Drug Allergies Allergy (Verified 07/29/19 07:31) HOME MEDICATIONS: Home Medications Medication Instructions Recorded Venlafaxine HCl ER [Effexor Xr -] 75 mg PO HS 12/12/17 Aripiprazole [Abilify -] 2 mg PO DAILY 02/19/18 Lamotrigine [Lamictal] 150 mg PO BID 10/20/18 REVIEW OF SYSTEMS CONSTITUTIONAL: Absent: fever, chills, diaphoresis, generalized weakness, malaise, loss of appetite, weight change HEENT: Absent: rhinorrhea, nasal congestion, throat pain, throat swelling, difficulty swallowing, mouth swelling, ear pain, eye pain, visual changes CARDIOVASCULAR: Absent: chest pain, syncope, palpitations, irregular heart rate, lightheadedness , peripheral edema RESPIRATORY: Absent: cough, shortness of breath, dyspnea with exertion, orthopnea, wheezing, stridor, hemoptysis GASTROINTESTINAL: Absent: abdominal pain, abdominal distension, nausea, vomiting, diarrhea, constipation, melena, hematochezia GENITOURINARY: Absent: dysuria, frequency, urgency, hesitancy, hematuria, flank pain, genital pain MUSCULOSKELETAL: Absent: myalgia, arthralgia, joint swelling, back pain, neck pain SKIN: Absent: rash, itching, pallor HEMATOLOGIC/IMMUNOLOGIC: Absent: easy bleeding, easy bruising, lymphadenopathy, frequent infections ENDOCRINE: Absent: unexplained weight gain, unexplained weight loss, heat intolerance, cold intolerance NEUROLOGIC: Absent: headache, focal weakness or paresthesias, dizziness, unsteady gait, seizure, mental status changes, bladder or bowel incontinence PHYSICAL EXAMINATION Vital Signs - 24 hr 09/02/19 07:04 Temperature 98.1 F Pulse Rate 75 Respiratory 18 Rate Blood Pressure 113/64 O2 Sat by Pulse 97 Oximetry (%) GENERAL: Awake, alert, and fully oriented, in no acute distress. HEAD: Normal with no signs of trauma. EYES: Pupils equal, round and reactive to light, sclera anicteric, conjunctiva clear. LUNGS: Breath sounds equal, clear to auscultation bilaterally. No wheezes, and no crackles. No accessory muscle use. HEART: Regular rate and rhythm, normal S1 and S2 ABDOMEN: Soft, nontender, not distended MUSCULOSKELETAL: Normal range of motion at all joints. No bony deformities or tenderness. No CVA tenderness. UPPER EXTREMITIES: 2+ pulses, warm, well-perfused. No cyanosis. No clubbing. No peripheral edema. LOWER EXTREMITIES: 2+ pulses, warm, well-perfused. No calf tenderness. No peripheral edema. NEUROLOGICAL: Cranial nerves II-XII intact. Normal speech. ASSESSMENT/PLAN: 49 year-old female with a PMH significant for major depression. She presents today for ECT. Cardiac --no cardiac history --Revised Cardiac Risk Index for Pre-Operative Risk: 0 points, 0.4% risk of major cardiac event Pulmonary --no pulmonary history Neurological --no neurological or neurosurgical history; no history of trauma Anesthesia --no reported problems with anesthesia ECT is a low risk procedure. The relative benefits of the planned procedure outweigh the relative risks for this patient at this time. Visit type - Emergency Visit Emergency Visit: No - New Patient This patient is new to me today: Yes Date on this admission: 09/02/19 - Critical Care Critical Care patient: No
[2019-09-02] MEDS ORDERED: KETAMINE HCL 500 MG/10 ML VIAL ONE (07:44)
[2019-09-02 08:56] VITALS: BP 122/67; PULSE 69
== END 2019-09-02 09:10 | disposition home or self-care (01) ==
LOC: FECT 05:44
PROVIDERS: ATTEND Psychiatry & Neurology Psychiatry
PROC: GZB4ZZZ Other Electroconvulsive Therapy (ICD-10-PCS; principal; 2019-09-02 07:00)
DX: F31.89 Other bipolar disorder (principal)
CPT/HCPCS: 81025; 90870; 94760

== ENCOUNTER 2019-10-07 05:36 | Day surgery (SDC) | payer OTHER ==
[2019-10-07 07:10] VITALS: TEMP 97.8; BMI 28.9
--- NOTE | 2019-10-07 07:14 | HP ---
CHIEF COMPLAINT: Major Depressive Disorder PCP: PCP: Carlyle Babcock Primary psychiatrist: Dr. Conway HISTORY OF PRESENT ILLNESS: 49 year-old female with a PMH significant for major depression. Patient has been undergoing ECT since August 2017. She presents today for ECT. 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 Alcohol:no Drugs: no Family history: mother 79 leukemia; father 63 CVA; 1 brother, 2 sisters, 2 children all a&w Allergies No Known Drug Allergies Allergy (Verified 07/29/19 07:31) HOME MEDICATIONS: Home Medications Medication Instructions Recorded Venlafaxine HCl ER [Effexor Xr -] 75 mg PO HS 12/12/17 Aripiprazole [Abilify -] 2 mg PO DAILY 02/19/18 Lamotrigine [Lamictal] 150 mg PO BID 10/20/18 REVIEW OF SYSTEMS CONSTITUTIONAL: Absent: fever, chills, diaphoresis, generalized weakness, malaise, loss of appetite, weight change HEENT: Absent: rhinorrhea, nasal congestion, throat pain, throat swelling, difficulty swallowing, mouth swelling, ear pain, eye pain, visual changes CARDIOVASCULAR: Absent: chest pain, syncope, palpitations, irregular heart rate, lightheadedness , peripheral edema RESPIRATORY: Absent: cough, shortness of breath, dyspnea with exertion, orthopnea, wheezing, stridor, hemoptysis GASTROINTESTINAL: Absent: abdominal pain, abdominal distension, nausea, vomiting, diarrhea, constipation, melena, hematochezia GENITOURINARY: Absent: dysuria, frequency, urgency, hesitancy, hematuria, flank pain, genital pain MUSCULOSKELETAL: Absent: myalgia, arthralgia, joint swelling, back pain, neck pain SKIN: Absent: rash, itching, pallor HEMATOLOGIC/IMMUNOLOGIC: Absent: easy bleeding, easy bruising, lymphadenopathy, frequent infections ENDOCRINE: Absent: unexplained weight gain, unexplained weight loss, heat intolerance, cold intolerance NEUROLOGIC: Absent: headache, focal weakness or paresthesias, dizziness, unsteady gait, seizure, mental status changes, bladder or bowel incontinence PSYCHIATRIC: Absent: anxiety, depression, suicidal or homicidal ideation, hallucinations. PHYSICAL EXAMINATION Vital Signs Temperature 97.8 F 10/07/19 07:07 Pulse Rate 72 10/07/19 07:07 Respiratory Rate 18 10/07/19 07:07 Blood Pressure 128/74 10/07/19 07:07 O2 Sat by Pulse Oximetry (%) 95 10/07/19 07:07 GENERAL: Awake, alert, and fully oriented, in no acute distress. HEAD: Normal with no signs of trauma. EYES: Pupils equal, round and reactive to light, extraocular movements intact, sclera anicteric, conjunctiva clear. No lid lag. EARS, NOSE, THROAT: Ears normal, nares patent, oropharynx clear without exudates. Moist mucous membranes. NECK: Normal range of motion, supple without lymphadenopathy, JVD, or masses. LUNGS: Breath sounds equal, clear to auscultation bilaterally. No wheezes, and no crackles. No accessory muscle use. HEART: Regular rate and rhythm, normal S1 and S2 without murmur, rub or gallop. ABDOMEN: Soft, nontender, not distended, normoactive bowel sounds, no guarding, no rebound, no masses. No hepatomegaly or splenomegaly. MUSCULOSKELETAL: Normal range of motion at all joints. No bony deformities or tenderness. No CVA tenderness. UPPER EXTREMITIES: 2+ pulses, warm, well-perfused. No cyanosis. No clubbing. No peripheral edema. LOWER EXTREMITIES: 2+ pulses, warm, well-perfused. No calf tenderness. No peripheral edema. NEUROLOGICAL: Cranial nerves II-XII intact. Normal speech. Normal gait. PSYCHIATRIC: Cooperative. Good eye contact. Appropriate mood and affect. SKIN: Warm, dry, normal turgor, no rashes or lesions noted, normal capillary refill. ASSESSMENT/PLAN: 49 year-old female with a PMH significant for major depression. She presents today for ECT. Cardiac --no cardiac history --Revised Cardiac Risk Index for Pre-Operative Risk: 0 points, 0.4% risk of major cardiac event Pulmonary --no pulmonary history Neurological --no neurological or neurosurgical history; no history of trauma Anesthesia --no reported problems with anesthesia ECT is a low risk procedure. The relative benefits of the planned procedure outweigh the relative risks for this patient at this time. Visit type - Emergency Visit Emergency Visit: No - New Patient This patient is new to me today: Yes Date on this admission: 10/07/19 - Critical Care Critical Care patient: No
[2019-10-07] MEDS ORDERED: KETAMINE HCL 500 MG/10 ML VIAL ONE (07:28)
[2019-10-07] MEDS ORDERED: ONDANSETRON 4 MG/2 ML VIAL IVPUSH PRN (08:18)
[2019-10-07] MEDS ORDERED: LACTATED RINGERS SOLUTION 1,000 ML IV SCH (08:30)
[2019-10-07 08:51] VITALS: BP 110/68; PULSE 78
== END 2019-10-07 08:50 | disposition home or self-care (01) ==
LOC: FECT 05:36
PROVIDERS: ATTEND Psychiatry & Neurology Psychiatry
PROC: GZB4ZZZ Other Electroconvulsive Therapy (ICD-10-PCS; principal; 2019-10-07 07:00)
DX: F31.9 Bipolar disorder, unspecified (principal)
CPT/HCPCS: 81025; 90870; 94760